=== PATIENT | female | born 1980 | race Caucasian/White ===

== ENCOUNTER 2018-08-05 14:49 | Emergency (ER) | payer SELFPAY ==
[2018-08-05 14:58] VITALS: BP 123/78; PULSE 77; RESP 14; TEMP 36.6; O2SAT 100
--- NOTE | 2018-08-05 15:11 | DI.RAD_ITS ---
SYMPTOMS/DIAGNOSIS: LIFTING INJURY 4 DAYS AGO AT WORK LUMBAR SPINE: The vertebral bodies and disc spaces are well maintained. No spondylolysis, spondylolisthesis or scoliosis is seen. The SI joints are unremarkable. IMPRESSION: Negative lumbar spine.
--- NOTE | 2018-08-05 15:13 | W.ED.GENAD ---
Discharge Plan Disposition Patient Disposition: HOME Condition: Fair Discharge Details Chief Complaint: Nk/Back Pain Clinical Impression: Acute lumbar back pain Primary Care Provider: None,None ED Provider: Roselyn Rojo Meds and New Rx's Prescriptions: New cyclobenzaprine 10 mg tablet 10 mg PO TID PRN (Reason: muscle spasm) Qty: 14 RF: 0 ibuprofen 600 mg tablet 600 mg PO QID PRN (Reason: pain) Qty: 30 RF: 0 Continue acetaminophen [Mapap Extra Strength] 500 MG tablet 500 mg PRN PRNRF: 0 Discontinued ibuprofen 200 MG tablet 800 mg PO PRN PRNRF: 0 Discharge Instructions Instructions: Low Back Strain (ED), Core Strengthening Exercises (GEN), Lower Back Exercises (ED) Additional Instructions: Encourage hydration. Tylenol and/or ibuprofen as needed for discomfort. You may take 1,000 milligrams of Tylenol every 6 hours as needed, 600 mg of ibuprofen every 6 hours as needed. Flexeril as prescribed for muscle spasm every 8 hours as needed. He may try cnzo-ozn-bqrqwng patches such as Lidoderm or Salonpas patches. Please contact occupational health tomorrow to schedule follow-up appointment in the next 1-2 weeks. Encourage gentle stretching and frequent ambulation. Please avoid heavy lifting and activities that cause increased pain. If you develop sensation change from weakness in her extremities, change in bowel or bladder habits, increased pain, fever/chills or other new/worsening symptoms please seek care urgently once again Stand Alone Forms: Physical Therapy Referral, Work Release Discharge Data Discharge Date/Time-TO BE ENTERED AT DEPARTURE: 08/05/18 18:22 Medical Decision Making <Aditya Chan NP - Last Filed: 08/07/18 09:39> Being initial injury will x-ray back. Plan to administer lidocaine patch, ibuprofen, and flexeril. No saddle anesthesia and no radiating pain unlikely discogenic or fracture. Will transition care to Colleague Roselyn VAZ for disposition. <ТАТЬЯНА Alaniz - Last Filed: 08/05/18 19:20> Care was transitioned to myself by Zhou Chan NP, with x-rays pending. Patient received ibuprofen, Flexeril and Lidoderm patch. She reports that her pain is improved although she continues to endorse discomfort primarily with rotation to the right. Again, no radiating discomfort. Mr. Chan did not note any neurologic deficits. X-ray reviewed by radiologist. Bone density throughout the lumbar spine is normal. No fracture. No subluxation. The facet joints are intact. The sacroiliac joints are unremarkable. Incidental sclerotic focus within the left ilium, likely bone island. Soft tissues are normal. Discussed these findings with the patient. Advised at this point that there is no acute fracture. Advised this is likely strain associated with rotational injury she sustained at work. Patient will be prescribed Flexeril. I advised she continue with the Tylenol and/or ibuprofen. We discussed topical options to help with discomfort. I encouraged gentle stretching and frequent ambulation. Advised against any heavy lifting or activities that cause increase in discomfort. Work note will be given. I advised that she contact occupational health tomorrow to schedule follow-up. Patient also be referred to physical therapy. All of her questions and concerns were addressed she is in agreement this plan. We discussed new/worsening symptoms and when to seek care urgently once again. HPI <Aditya ChanFROY - Last Filed: 08/07/18 09:39> General Mode of arrival: ambulatory. Date/Time Provider Initiated Documentation: 08/05/18 14:52. Limitations to Documentation: no limitations. Information obtained by: patient. History of Present Illness 37 year old F presents to the emergency department with the chief complaint of back pain, HPI Narrative: 37 y/o female here with c/o acute back pain after lifting injury. Four days ago she was lifting heavy bins at work when she felt a pull/pop to the lower right back. Pain is worse as it crosses over the lumbar region. Denies any fever, N/V/D, bowel or bladder incontinence. The pain does not radiate. She does not have a history of back injury or pain. Her boss brought in to be evaluated. Related Data Home Medications Medication Instructions Recorded Confirmed acetaminophen [Mapap Extra 500 mg PRN PRN 08/03/14 08/05/18 Strength] cyclobenzaprine 10 mg PO TID PRN #14 tab 08/05/18 ibuprofen 600 mg PO QID PRN #30 tab 08/05/18 Previous Rx's Medication Instructions Recorded cyclobenzaprine 10 mg PO TID PRN #14 tab 08/05/18 ibuprofen 600 mg PO QID PRN #30 tab 08/05/18 Allergies Allergy/AdvReac Type Severity Reaction Status Date / Time No Known Allergies Allergy Unverified 03/06/18 09:58 General Stated Complaint: Nk/Back Pain GOMEZ: 4 Review of Systems <Aditya Chan NP - Last Filed: 08/07/18 09:39> Cardiovascular Reports system reviewed and no additional complaints, except as docu Respiratory Reports system reviewed and no additional complaints, except as docu Gastrointestinal Reports system reviewed and no additional complaints, except as docu Genitourinary Reports system reviewed and no additional complaints, except as docu Musculoskeletal Reports back pain Integumentary/Breasts Reports system reviewed and no additional complaints, except as docu Neurologic Reports system reviewed and no additional complaints, except as docu Exam <Aditya Chan NP - Last Filed: 08/07/18 09:39> Const General: cooperative, uncomfortable (pain to lower back) and no acute distress Nutritional Appearance: average body habitus Orientation: alert and awake HENID Head: normal to inspection Ears: hearing grossly normal bilaterally and external ears normal General nose exam: external nose normal and nares normal Eyes General: appearance normal, both eyes and all related structures Neck Neck: normal visual inspection and full ROM Resp Effort & Inspection: normal respiratory effort Auscultation: clear to auscultation bilaterally Cardio Rate: regular rate Heart Sounds: S1 normal and S2 normal GI Palpation: soft and nontender Back/Spine/Pelvis Back: no CVA tenderness, No erythema, back tenderness (minimal to lower right lumbar region with rotating at the hip) and No Daniels-Johnson sign present Cervical Spine: normal cervical lordosis and cervical ROM normal Thoracic/Lumbar Spine: thoracic and lumbar spine normal to inspection, No thoracic spinal tenderness, No lumbar spinal tenderness and straight leg raise positive (left) Pelvis: no pain with anterior-posterior compression Skin General skin exam: no rashes or lesions noted Neuro General: alert, awake, oriented x3 and gait normal Cognition: normal cognition Speech: speech normal Gait: normal gait Extrem General: normal to inspection, full ROM and normal capillary refill Psych Appearance: grossly normal Speech and Movement: speech and movement normal Mood: congruent mood Affect: normal affect Attitude: cooperative Thought Process: normal Thought Content: normal Insight: insight good Course <Aditya Chan NP - Last Filed: 08/07/18 09:39> Vital Signs Temperature 36.6 C 08/05/18 14:58 Pulse 77 08/05/18 14:58 Respiratory Rate 14 11/27/18 14:58 Blood Pressure 123/78 08/05/18 14:58 Pulse Oximetry 100 08/05/18 14:58 Temperature 36.6 C 08/05/18 14:58 Temperature Source Temporal Artery Scan 08/05/18 14:58 Pulse 77 08/05/18 14:58 Respiratory Rate 14 08/05/18 14:58 Respiratory Effort 08/05/18 15:00 Blood Pressure 123/78 08/05/18 14:58 Blood Pressure Position Sitting 08/05/18 14:58 Pulse Oximetry 100 08/05/18 14:58 Oxygen Delivery Method Room Air 08/05/18 14:58 Oxygen Flow Rate 0 08/05/18 14:58 Pain Level 5 08/05/18 14:58 Sign Out <Aditya Chan NP - Last Filed: 08/07/18 09:39> Sign Out Data: Sign Out Comment: Discussed with Roselyn TINAJERO. X-ray pending. Roselyn agrees to disposition pat. Pt notified. Last updated by Aditya Chan NP at 08/05/18 16:30
--- NOTE | 2018-08-05 15:20 | ED.GENADUL_ITS ---
Discharge Plan Disposition Patient Disposition: HOME Condition: Fair Discharge Details Chief Complaint: Nk/Back Pain Clinical Impression: Acute lumbar back pain Primary Care Provider: None,None ED Provider: Roselyn Rjoo Meds and New Rx's Prescriptions: New cyclobenzaprine 10 mg tablet 10 mg PO TID PRN (Reason: muscle spasm) Qty: 14 RF: 0 ibuprofen 600 mg tablet 600 mg PO QID PRN (Reason: pain) Qty: 30 RF: 0 Continue acetaminophen [Mapap Extra Strength] 500 MG tablet 500 mg PRN PRNRF: 0 Discontinued ibuprofen 200 MG tablet 800 mg PO PRN PRNRF: 0 Discharge Instructions Instructions: Low Back Strain (ED), Core Strengthening Exercises (GEN), Lower Back Exercises (ED) Additional Instructions: Encourage hydration. Tylenol and/or ibuprofen as needed for discomfort. You may take 1,000 milligrams of Tylenol every 6 hours as needed, 600 mg of ibuprofen every 6 hours as needed. Flexeril as prescribed for muscle spasm every 8 hours as needed. He may try rjos-wak-xqoqyww patches such as Lidoderm or Salonpas patches. Please contact occupational health tomorrow to schedule follow-up appointment in the next 1-2 weeks. Encourage gentle stretching and frequent ambulation. Please avoid heavy lifting and activities that cause increased pain. If you develop sensation change from weakness in her extremities, change in bowel or bladder habits, increased pain, fever/chills or other new/worsening symptoms please seek care urgently once again Stand Alone Forms: Physical Therapy Referral, Work Release Discharge Data Discharge Date/Time-TO BE ENTERED AT DEPARTURE: 08/05/18 18:22 Medical Decision Making <Aditya Chan NP - Last Filed: 08/07/18 09:39> Being initial injury will x-ray back. Plan to administer lidocaine patch, ibuprofen, and flexeril. No saddle anesthesia and no radiating pain unlikely discogenic or fracture. Will transition care to Colleague Roselyn VAZ for disposition. <ТАТЬЯНА Alaniz - Last Filed: 08/05/18 19:20> Care was transitioned to myself by Zhou Chan NP, with x-rays pending. Patient received ibuprofen, Flexeril and Lidoderm patch. She reports that her pain is improved although she continues to endorse discomfort primarily with rotation to the right. Again, no radiating discomfort. Mr. Chan did not note any neurologic deficits. X-ray reviewed by radiologist. Bone density throughout the lumbar spine is normal. No fracture. No subluxation. The facet joints are intact. The sacroiliac joints are unremarkable. Incidental sclerotic focus within the left ilium, likely bone island. Soft tissues are normal. Discussed these findings with the patient. Advised at this point that there is no acute fracture. Advised this is likely strain associated with rotational injury she sustained at work. Patient will be prescribed Flexeril. I advised she continue with the Tylenol and/or ibuprofen. We discussed topical options to help with discomfort. I encouraged gentle stretching and frequent ambulation. Advised against any heavy lifting or activities that cause increase in discomfort. Work note will be given. I advised that she contact occupational health tomorrow to schedule follow-up. Patient also be referred to physical therapy. All of her questions and concerns were addressed she is in agreement this plan. We discussed new/worsening symptoms and when to seek care urgently once again. HPI <Aditya ChanFROY - Last Filed: 08/07/18 09:39> General Mode of arrival: ambulatory . Date/Time Provider Initiated Documentation: 08/05/18 14:52 . Limitations to Documentation: no limitations . Information obtained by: patient . History of Present Illness 37 year old F presents to the emergency department with the chief complaint of back pain, HPI Narrative: 37 y/o female here with c/o acute back pain after lifting injury. Four days ago she was lifting heavy bins at work when she felt a pull/ pop to the lower right back. Pain is worse as it crosses over the lumbar region. Denies any fever, N/V/D, bowel or bladder incontinence. The pain does not radiate. She does not have a history of back injury or pain. Her boss brought in to be evaluated. Related Data Home Medications Medication Instructions Recorded Confirmed acetaminophen [Mapap Extra 500 mg PRN PRN 08/03/14 08/05/18 Strength] cyclobenzaprine 10 mg PO TID PRN #14 tab 08/05/18 ibuprofen 600 mg PO QID PRN #30 tab 08/05/18 Previous Rx's Medication Instructions Recorded cyclobenzaprine 10 mg PO TID PRN #14 tab 08/05/18 ibuprofen 600 mg PO QID PRN #30 tab 08/05/18 Allergies Allergy/AdvReac Type Severity Reaction Status Date / Time No Known Allergies Allergy Unverified 03/06/18 09:58 General Stated Complaint: Nk/Back Pain GOMEZ: 4 Review of Systems <Aditya Chan NP - Last Filed: 08/07/18 09:39> Cardiovascular Reports system reviewed and no additional complaints, except as docu Respiratory Reports system reviewed and no additional complaints, except as docu Gastrointestinal Reports system reviewed and no additional complaints, except as docu Genitourinary Reports system reviewed and no additional complaints, except as docu Musculoskeletal Reports back pain Integumentary/Breasts Reports system reviewed and no additional complaints, except as docu Neurologic Reports system reviewed and no additional complaints, except as docu Exam <Aditya Chan NP - Last Filed: 08/07/18 09:39> Const General: cooperative, uncomfortable (pain to lower back) and no acute distress Nutritional Appearance: average body habitus Orientation: alert and awake HENME Head: normal to inspection Ears: hearing grossly normal bilaterally and external ears normal General nose exam: external nose normal and nares normal Eyes General: appearance normal, both eyes and all related structures Neck Neck: normal visual inspection and full ROM Resp Effort & Inspection: normal respiratory effort Auscultation: clear to auscultation bilaterally Cardio Rate: regular rate Heart Sounds: S1 normal and S2 normal GI Palpation: soft and nontender Back/Spine/Pelvis Back: no CVA tenderness, No erythema, back tenderness (minimal to lower right lumbar region with rotating at the hip) and No Daniels-Johnson sign present Cervical Spine: normal cervical lordosis and cervical ROM normal Thoracic/Lumbar Spine: thoracic and lumbar spine normal to inspection, No thoracic spinal tenderness, No lumbar spinal tenderness and straight leg raise positive (left) Pelvis: no pain with anterior-posterior compression Skin General skin exam: no rashes or lesions noted Neuro General: alert, awake, oriented x3 and gait normal Cognition: normal cognition Speech: speech normal Gait: normal gait Extrem General: normal to inspection, full ROM and normal capillary refill Psych Appearance: grossly normal Speech and Movement: speech and movement normal Mood: congruent mood Affect: normal affect Attitude: cooperative Thought Process: normal Thought Content: normal Insight: insight good Course <Aditya Chan NP - Last Filed: 08/07/18 09:39> Vital Signs Temperature 36.6 C 08/05/18 14:58 Pulse 77 08/05/18 14:58 Respiratory Rate 14 11/27/18 14:58 Blood Pressure 123/78 08/05/18 14:58 Pulse Oximetry 100 08/05/18 14:58 Temperature 36.6 C 08/05/18 14:58 Temperature Source Temporal Artery Scan 08/05/18 14:58 Pulse 77 08/05/18 14:58 Respiratory Rate 14 08/05/18 14:58 Respiratory Effort 08/05/18 15:00 Blood Pressure 123/78 08/05/18 14:58 Blood Pressure Position Sitting 08/05/18 14:58 Pulse Oximetry 100 08/05/18 14:58 Oxygen Delivery Method Room Air 08/05/18 14:58 Oxygen Flow Rate 0 08/05/18 14:58 Pain Level 5 08/05/18 14:58 Sign Out <Aditya Chan NP - Last Filed: 08/07/18 09:39> Sign Out Data: Sign Out Comment: Discussed with Roselyn TINAJERO. X-ray pending. Roselyn agrees to disposition pat. Pt notified. Last updated by Aditya Chan NP at 08/05/18 16:30
[2018-08-05] MEDS: Cyclobenzaprine 10 MG TAB PO (15:36)
[2018-08-05] MEDS: Ibuprofen 600 MG TAB PO (15:36)
[2018-08-05 15:45] LABS: Bilirubin Negative (Negative); Blood Negative (Negative); Clarity Clear; Glucose Negative (Negative); Ketones Negative (Negative); Leukocyte Esterase Negative (Negative); Nitrite Negative (Negative); Specific Gravity 1.025 (1.005-1.025); Urobilinogen 0.2 EU/dL (Up TO 0.2)
[2018-08-05] MEDS: Lidocaine 5% Patch 1 PATCH (16:06)
--- NOTE | 2018-08-05 17:31 | DI.VRAD_ITS ---
EXAM: XR Lumbar Spine, 4 or 5 Views EXAM DATE/TIME: 08/05/2018 3:11 PM CLINICAL HISTORY: 37 years old, female; Signs and symptoms; Other: Lifting injury four days ago a TECHNIQUE: XR of the lumbar spine, 4 or 5 views. COMPARISON: No relevant prior studies available. FINDINGS: Vertebrae: Bone density throughout the lumbar spine is normal. No fracture. No subluxation. The facet joints are intact. The sacroiliac joints are unremarkable. Other bones/joints: Incidental sclerotic focus within the left ilium, likely bone island. Soft tissues: Normal. IMPRESSION: No fracture or subluxation. Dictated and Authenticated by: Kg An MD. Ordering:ORDRIGUE HAUSER MD
[2018-08-05 17:32] VITALS: BP 115/73; PULSE 64; RESP 14; O2SAT 100
== END 2018-08-05 18:22 | disposition home or self-care (01) ==
PROVIDERS: Nurse Practitioner Family; Emergency Provider Physician Assistant
DX: M54.5 Low back pain (principal)
CPT/HCPCS: 99283; 72110; 81003

== ENCOUNTER 2019-02-12 07:06 | Emergency (ER) | payer SELFPAY ==
[2019-02-12 07:36] VITALS: BP 114/64; PULSE 76; RESP 16; TEMP 36.7; O2SAT 98
--- NOTE | 2019-02-12 08:11 | W.ED.GENAD ---
Discharge Plan Disposition Patient Disposition: HOME Discharge Details Chief Complaint: Abd Prob Clinical Impression: Abdominal pain, Adrenal nodule, Ovarian cyst Primary Care Provider: None,None ED Provider: Genaro Bains Home Meds and New Rx's Prescriptions: New famotidine [Pepcid] 20 mg tablet 20 mg PO BID 42 Days Qty: 84 RF: 0 Continued acetaminophen [Mapap Extra Strength] 500 MG tablet 500 mg PRN PRNRF: 0 ibuprofen 600 mg tablet 600 mg PO QID PRN (Reason: pain) Qty: 30 RF: 0 Discontinued cyclobenzaprine 10 mg tablet 10 mg PO TID PRN (Reason: muscle spasm) Qty: 14 RF: 0 Discharge Instructions Instructions: Ovarian Cyst (ED), Abdominal Pain (ED) Additional Instructions: Please contact your primary care physician to arrange follow-up. Be sure to review incidental findings noted and imaging studies as additional diagnostic testing/may be needed. Return to the ER for any worsening or new concerning symptoms. Discharge Data Discharge Date/Time-TO BE ENTERED AT DEPARTURE: 02/12/19 11:09 Medical Decision Making 8:15 --38-year-old female here with moderate to severe epigastric abdominal pain, tender to palpation left upper and left mid abdomen, mild guarding but no rebound. Concern for acute surgical pathology versus diverticulitis versus colitis. Plan to obtain CT imaging. I will check labs to assess for anemia as well as pancreatitis. I will give IV fluid as patient is dehydrated. We will also give Pepcid IV. 9:40 --CT of the abdomen pelvis with contrast interpreted by radiology: Negative for acute process, left adrenal small 2.4 cm nodule noted likely to be adenoma, 3 cm right ovarian cyst noted. I reviewed findings with the patient and recommended that she follow-up with her primary care physician. She understands that she may need additional diagnostic testing. Labs reviewed and consistent with dehydration. Will continue IVF bolus. Patient reassessed and noted to be feeling better after Pepcid. -- Usual and customary discharge instructions were provided. Patient verbalized understanding of importance of need to return for any worsening or new concerning symptoms. HPI General Mode of arrival: ambulatory. Date/Time Provider Initiated Documentation: 02/12/19 08:04. Limitations to Documentation: no limitations. Information obtained by: patient. HPI Narrative: 38-year-old female presents with chief complaint of abdominal pain. Patient notes she woke up this morning around 5 AM with moderate to severe epigastric abdominal pain that radiates to bilateral upper abdomen. Pain is described as a sharp, burning pain. No trauma. Patient has associated anorexia this morning. She denies associated nausea, vomiting, loose stool, fever or chest pain. She has recently had increased fatigue over the past few weeks. Last menstrual period was normal 2-1/2 weeks ago. Last bowel movement was normal this morning Related Data Home Medications Medication Instructions Recorded Confirmed acetaminophen [Mapap Extra 500 mg PRN PRN 08/03/14 02/12/19 Strength] ibuprofen 600 mg PO QID PRN #30 tab 08/05/18 02/12/19 famotidine [Pepcid] 20 mg PO BID 42 Days #84 tab 02/12/19 Previous Rx's Medication Instructions Recorded ibuprofen 600 mg PO QID PRN #30 tab 08/05/18 famotidine [Pepcid] 20 mg PO BID 42 Days #84 tab 02/12/19 Allergies Allergy/AdvReac Type Severity Reaction Status Date / Time No Known Allergies Allergy Unverified 02/12/19 07:38 General Stated Complaint: Abd Prob GMOEZ: 3 Review of Systems Review of Systems All systems reviewed & are unremarkable except as noted in HPI and below Cardiovascular Denies chest pain Gastrointestinal Reports as per HPI and Reports abdominal pain Genitourinary Denies urinary frequency [facility] Surgical History section Ligation of fallopian tube Social History Smoking/Tobacco Use Status: Current every day Drug use: Never Do you feel safe in your relationship?: Yes Exam Const General: cooperative and no acute distress [facility] Head: normocephalic Mouth: mucous membranes dry Throat: posterior oropharynx normal Eyes Conjunctivae: normal conjunctivae Sclera: normal sclerae Neck Neck: trachea midline and supple Resp Auscultation: clear to auscultation bilaterally, no rales, no rhonchi and no wheezes Cardio Jugular venous pressure: no JVD Rate: regular rate and not tachycardic Rhythm: regular rhythm GI Inspection: normal to inspection, no abdominal wall ecchymosis, no edema and non-distended Palpation: soft, not firm, no guarding, no hepatosplenomegaly, no masses, no pulsatile masses, not rigid, tender in the LLQ and in the LUQ and No ascites Auscultation: normal bowel sounds Skin General skin exam: no rashes or lesions noted Neuro General: alert, awake and tone normal Extrem General: no edema Psych Appearance: grossly normal Course Vital Signs Temperature 36.7 C 02/12/19 07:36 Pulse 76 02/12/19 07:36 Respiratory Rate 16 02/12/19 07:36 Blood Pressure 114/64 02/12/19 07:36 Pulse Oximetry 98 02/12/19 07:36 Temperature 36.7 C 02/12/19 07:36 Temperature Source Skin 02/12/19 07:36 Pulse 76 02/12/19 07:36 Respiratory Rate 16 02/12/19 07:36 Respiratory Effort 02/12/19 07:36 Blood Pressure 114/64 02/12/19 07:36 Blood Pressure Position Sitting 02/12/19 07:36 Pulse Oximetry 98 02/12/19 07:36 Oxygen Delivery Method Room Air 02/12/19 07:36 Oxygen Flow Rate 0 02/12/19 07:36 Pain Level 7 02/12/19 07:36
[2019-02-12] MEDS: Lactated Ringers 1,000 ML 125 ML IV (08:15)
--- NOTE | 2019-02-12 08:17 | ED.GENADUL_ITS ---
Discharge Plan Disposition Patient Disposition: HOME Discharge Details Chief Complaint: Abd Prob Clinical Impression: Abdominal pain, Adrenal nodule, Ovarian cyst Primary Care Provider: None,None ED Provider: Genaro Bains Home Meds and New Rx's Prescriptions: New famotidine [Pepcid] 20 mg tablet 20 mg PO BID 42 Days Qty: 84 RF: 0 Continued acetaminophen [Mapap Extra Strength] 500 MG tablet 500 mg PRN PRNRF: 0 ibuprofen 600 mg tablet 600 mg PO QID PRN (Reason: pain) Qty: 30 RF: 0 Discontinued cyclobenzaprine 10 mg tablet 10 mg PO TID PRN (Reason: muscle spasm) Qty: 14 RF: 0 Discharge Instructions Instructions: Ovarian Cyst (ED), Abdominal Pain (ED) Additional Instructions: Please contact your primary care physician to arrange follow-up. Be sure to review incidental findings noted and imaging studies as additional diagnostic testing/may be needed. Return to the ER for any worsening or new concerning symptoms. Discharge Data Discharge Date/Time-TO BE ENTERED AT DEPARTURE: 02/12/19 11:09 Medical Decision Making 8:15 --38-year-old female here with moderate to severe epigastric abdominal pain, tender to palpation left upper and left mid abdomen, mild guarding but no rebound. Concern for acute surgical pathology versus diverticulitis versus colitis. Plan to obtain CT imaging. I will check labs to assess for anemia as well as pancreatitis. I will give IV fluid as patient is dehydrated. We will also give Pepcid IV. 9:40 --CT of the abdomen pelvis with contrast interpreted by radiology: Negative for acute process, left adrenal small 2.4 cm nodule noted likely to be adenoma, 3 cm right ovarian cyst noted. I reviewed findings with the patient and recommended that she follow-up with her primary care physician. She understands that she may need additional diagnostic testing. Labs reviewed and consistent with dehydration. Will continue IVF bolus. Patient reassessed and noted to be feeling better after Pepcid. -- Usual and customary discharge instructions were provided. Patient verbalized understanding of importance of need to return for any worsening or new concerning symptoms. HPI General Mode of arrival: ambulatory . Date/Time Provider Initiated Documentation: 02/12/19 08:04 . Limitations to Documentation: no limitations . Information obtained by: patient . HPI Narrative: 38-year-old female presents with chief complaint of abdominal pain. Patient notes she woke up this morning around 5 AM with moderate to severe epigastric abdominal pain that radiates to bilateral upper abdomen. Pain is described as a sharp, burning pain. No trauma. Patient has associated anorexia this morning. She denies associated nausea, vomiting, loose stool, fever or chest pain. She has recently had increased fatigue over the past few weeks. Last menstrual period was normal 2-1/2 weeks ago. Last bowel movement was normal this morning Related Data Home Medications Medication Instructions Recorded Confirmed acetaminophen [Mapap Extra 500 mg PRN PRN 08/03/14 02/12/19 Strength] ibuprofen 600 mg PO QID PRN #30 tab 08/05/18 02/12/19 famotidine [Pepcid] 20 mg PO BID 42 Days #84 tab 02/12/19 Previous Rx's Medication Instructions Recorded ibuprofen 600 mg PO QID PRN #30 tab 08/05/18 famotidine [Pepcid] 20 mg PO BID 42 Days #84 tab 02/12/19 Allergies Allergy/AdvReac Type Severity Reaction Status Date / Time No Known Allergies Allergy Unverified 02/12/19 07:38 General Stated Complaint: Abd Prob GOMEZ: 3 Review of Systems Review of Systems All systems reviewed & are unremarkable except as noted in HPI and below Cardiovascular Denies chest pain Gastrointestinal Reports as per HPI and Reports abdominal pain Genitourinary Denies urinary frequency [facility] Surgical History section Ligation of fallopian tube Social History Smoking/Tobacco Use Status: Current every day Drug use: Never Do you feel safe in your relationship?: Yes Exam Const General: cooperative and no acute distress [facility] Head: normocephalic Mouth: mucous membranes dry Throat: posterior oropharynx normal Eyes Conjunctivae: normal conjunctivae Sclera: normal sclerae Neck Neck: trachea midline and supple Resp Auscultation: clear to auscultation bilaterally, no rales, no rhonchi and no wheezes Cardio Jugular venous pressure: no JVD Rate: regular rate and not tachycardic Rhythm: regular rhythm GI Inspection: normal to inspection, no abdominal wall ecchymosis, no edema and non-distended Palpation: soft, not firm, no guarding, no hepatosplenomegaly, no masses, no pulsatile masses, not rigid, tender in the LLQ and in the LUQ and No ascites Auscultation: normal bowel sounds Skin General skin exam: no rashes or lesions noted Neuro General: alert, awake and tone normal Extrem General: no edema Psych Appearance: grossly normal Course Vital Signs Temperature 36.7 C 02/12/19 07:36 Pulse 76 02/12/19 07:36 Respiratory Rate 16 02/12/19 07:36 Blood Pressure 114/64 02/12/19 07:36 Pulse Oximetry 98 02/12/19 07:36 Temperature 36.7 C 02/12/19 07:36 Temperature Source Skin 02/12/19 07:36 Pulse 76 02/12/19 07:36 Respiratory Rate 16 02/12/19 07:36 Respiratory Effort 02/12/19 07:36 Blood Pressure 114/64 02/12/19 07:36 Blood Pressure Position Sitting 02/12/19 07:36 Pulse Oximetry 98 02/12/19 07:36 Oxygen Delivery Method Room Air 02/12/19 07:36 Oxygen Flow Rate 0 02/12/19 07:36 Pain Level 7 02/12/19 07:36
[2019-02-12 08:20] LABS: Abs Immature Grans 0.02 k/cumm (0.0-0.09); Absolute Basophil Count 0.02 k/cumm (0.0-0.2); Absolute Eosinophil Count 0.01 k/cumm (0.0-0.7); Absolute Lymphocyte Count 2.09 k/cumm (1.2-3.4); Absolute Monocyte Count 0.56 k/cumm (0.11-0.7); Absolute Neutrophil Count 5.83 k/cumm (1.2-6.7); Basophils % 0.2; Eosinophils % 0.1; HCT 41.2 % (36.0-46.0); HGB 13.4 g/dL (12.0-15.5); Immature Grans % 0.2; Lymphocytes % 24.5; Mean Corp. HGB Concentration 32.5 g/dL (32.0-36.0); Mean Corpuscular Volume 92.2 fL (80-95); Mean Platelet Volume 10.7 fL (8.0-11.0); Monocytes % 6.6; Neutrophils % 68.4; Platelet Count 218 x1000/uL (130-400); RBC 4.47 m/cumm (4.00-5.20); RBC Distribution Width 15.3 % (11.7-14.6); White Blood Cell Count 8.53 k/cumm (4.4-10.8)
[2019-02-12] MEDS: FAMOTIDINE 20 MG/50 ML BAG 100 MG IVPB (08:20)
[2019-02-12 08:23] LABS: Bilirubin Negative (Negative); Blood Trace-intact (Negative); Clarity Clear; Glucose Negative (Negative); Ketones 15 mg/dL (Negative); Leukocyte Esterase Negative (Negative); Nitrite Negative (Negative); Specific Gravity 1.015 (1.005-1.025); Urobilinogen 0.2 EU/dL (Up TO 0.2); pH 5.5 (5-8)
[2019-02-12 08:35] LABS: Bacteria Negative HPF (Negative); C & S Indicated? No; Casts Negative LPF (Negative); Crystals Negative HPF (Negative); Epithelial Cells Few HPF (Negative); Mucus Negative (Negative); RBC 0-2 (0-2); WBC 0-2 HPF (0-5)
[2019-02-12 08:35] LABS: ALT 20 U/L (12-78); AST 10 U/L (15-37); Albumin 3.9 g/dL (3.4-5.0); Alkaline Phosphatase 63 U/L (46-116); Anion Gap 11.8 mmol/L (3-11); BUN 20 mg/dL (7-18); Bilirubin, Total 0.3 mg/dL (0.2-1.0); CO2 22.2 mmol/L (21.0-32.0); CREATININE 0.66 mg/dL (0.55-1.02); Calcium 10.2 mg/dL (8.5-10.1); Chloride 104 mmol/L (98-107); Glucose 98 mg/dL (70-100); Lipase 118 U/L (73-393); Potassium 3.8 mmol/L (3.5-5.1); Sodium 138 mmol/L (136-145); Total Protein 7.4 g/dL (6.4-8.2)
[2019-02-12] MEDS: Omnipaque 350 MG/ML 100 ML BTL IJ (09:25)
--- NOTE | 2019-02-12 09:25 | DI.CT_ITS ---
SYMPTOM/DIAGNOSIS: EPIGASTRIC ABDOMINAL PAIN, TTP LEFT ABDOMEN CT SCAN ABDOMEN AND PELVIS: CT scan of the abdomen and pelvis was performed following the uneventful administration of intravenous contrast material. No priors for comparison. The visualized lung bases are clear. The liver is normal in size. No suspicious hepatic masses seen. Incidental note is made of focal fatty infiltration in the region of the ligamentum teres. The portal, superior mesenteric and splenic veins are patent. The gallbladder is negative. No biliary ductal dilatation is seen. The pancreas and spleen are unremarkable. There is a 2.4 cm hypodense left adrenal nodule likely an adenoma. The right adrenal gland is unremarkable. The kidneys show normal and symmetric enhancement. No evidence of a solid renal mass or obstruction. The urinary bladder is intact. Reproductive organs are unremarkable save for a 3.2 cm right ovarian cyst. The abdominal aorta is of normal caliber. No significant abdominal or pelvic adenopathy, ascites or pneumoperitoneum seen. The bowel shows no evidence of obstruction or inflammation. There are a few diverticula seen in the sigmoid colon but no evidence to suggest acute diverticulitis is present. A normal appendix is present. No acute osseous abnormality is seen. IMPRESSION: 1. No acute abdominal or pelvic abnormality. 2. 3.2 cm right ovarian cyst. 3. 2.4 cm hypodense left adrenal nodule likely reflecting a benign lesion such as an adenoma. Follow up as clinically appropriate. The findings were discussed with Dr. Genaro Bains of the Emergency Department on the date of the examination.
[2019-02-12] MEDS: Lactated Ringers 1,000 ML 1000 ML IV (09:45)
[2019-02-12 11:10] VITALS: BP 120/68; PULSE 60; RESP 16; TEMP 36.7; O2SAT 98
== END 2019-02-12 11:09 | disposition home or self-care (01) ==
PROVIDERS: Emergency Provider Student in an Organized Health Care Education/Training Program
DX: R10.13 Epigastric pain (principal); E27.9 Disorder of adrenal gland, unspecified; N83.201 Unspecified ovarian cyst, right side
CPT/HCPCS: 36415; 80053; 81025; 83690; 96361; 96365; 99285; 74177; 81003; 81015; 85025; 99284; J3490

== ENCOUNTER 2019-09-07 09:56 | Emergency (ER) | payer SELFPAY ==
[2019-09-07 10:00] VITALS: BP 116/76; PULSE 94; RESP 14; TEMP 36.6; O2SAT 99
--- NOTE | 2019-09-07 10:48 | ED.GENADUL_ITS ---
Discharge Plan Disposition Patient Disposition: HOME Condition: Stable Discharge Details Chief Complaint: DentalOral Clinical Impression: Dental infection Primary Care Provider: Unknown,Unknown ED Provider: Daksha Bains Home Meds and New Rx's Prescriptions: New penicillin V potassium 500 mg tablet 500 mg PO QID 7 Days Qty: 27 RF: 0 Continued acetaminophen [Mapap Extra Strength] 500 MG tablet 500 mg PRN PRNRF: 0 ibuprofen 600 mg tablet 600 mg PO QID PRN (Reason: pain) Qty: 30 RF: 0 Discharge Instructions Instructions: Penicillin V (By mouth), Oxycodone/Acetaminophen (By mouth), Dental Abscess (ED) Additional Instructions: Please return immediately to the emergency department if you develop any new or worsening symptoms, if your condition does not improve as expected, or if you become otherwise concerned. It is extremely important that you call soon as possible to make an appointment to be seen in follow-up for this visit by your primary care doctor and your dentist. You have been given 1 tab of Percocet to take after you drive home. Please do not take or use any other sedating medications or substances including alcohol and [id number] Benadryl within 6 hours of taking Percocet. Please not drive, make important decisions, or operate machinery while taking Percocet. Medical Decision Making Prachi Henao is a 38-year-old woman without reported history of major medical problems presenting to the emergency department with dental pain/facial swelling that began yesterday. On exam patient is very well and nontoxic appearing. There is erythema of the gingiva/mucosa adjacent to teeth 11 and 12, edema of the maxillary/buccal area of the face adjacent to these teeth. No overlying skin changes. Bedside ultrasound shows no fluid collection. Exam/history is not consistent with abscess, deep space infection, meningitis, impending airway compromise, sepsis. Plan for penicillin. Patient is driving herself home, will give 1 tab Percocet for home use. I had a lengthy discussion with Patient regarding return to emergency department precautions (including but not limited to rash, fever, worsening pain, worsening swelling, vomiting, difficulty swallowing), home care, safe opiate use, and importance of outpatient follow-up with her dentist. Patient is instructed to return to the emergency department within 24 to 48 hours if no improvement in symptoms while taking antibiotics. Pt verbalizes understanding of the plan and is amenable. Patient discharged to home with clear plan for outpatient follow-up. All questions were answered. Disposition decision was made weighing the risks and benefits of hospitalization versus outpatient treatment, the risk for further decompensation, and the patient's wishes. Medical Records Medical records reviewed: Yes I reviewed the patient's medical records. HPI General Mode of arrival: ambulatory . Date/Time Provider Initiated Documentation: 09/07/19 10:43 . Limitations to Documentation: no limitations . Information obtained by: patient, RN notes reviewed and old records reviewed . HPI Narrative: Prachi Vazquez is a 38-year-old woman without reported history of major medical problems presenting to the emergency department with dental pain. Patient reports that yesterday she noticed pain in the area of her left upper canines. Patient reports that this morning she woke up and pain had increased, and she noticed swelling in her face in that area. Patient reports that she thinks that she cracked the associated tooth about 7 months ago, but has not had pain or issues with that tooth since. Patient reports she has never had a dental infection in the past. No known inciting event. Patient denies any other pain, fevers, vomiting, diarrhea, rash, vision changes, difficulty swallowing, drooling, voice change. Patient reports that feels otherwise in her usual state of health. Has been eating and drinking until this morning, when she did not eat secondary to the pain in her tooth. Patient reports that she took ibuprofen for pain yesterday which helped. Related Data Home Medications Medication Instructions Recorded Confirmed acetaminophen [Mapap Extra 500 mg PRN PRN 08/03/14 09/07/19 Strength] ibuprofen 600 mg PO QID PRN #30 tab 08/05/18 09/07/19 penicillin V potassium 500 mg PO QID 7 Days #27 tab 09/07/19 Previous Rx's Medication Instructions Recorded ibuprofen 600 mg PO QID PRN #30 tab 08/05/18 penicillin V potassium 500 mg PO QID 7 Days #27 tab 09/07/19 Allergies Allergy/AdvReac Type Severity Reaction Status Date / Time No Known Allergies Allergy Unverified 09/07/19 10:03 General Stated Complaint: DentalOral GOMEZ: 4 Review of Systems Narrative: Constitutional: denies fevers Eyes: denies eye pain, visual changes ENT: denies ear pain, sore throat, reports dental pain Cardiovascular: denies chest pain Respiratory: denies SOB, cough GI: denies abdominal pain, vomiting, diarrhea : denies flank pain MSK: denies back pain, neck pain, arthralgias, myalgias Skin: denies rash Neuro: denies headaches, numbness, weakness PFSH Social History Smoking/Tobacco Use Status: Current every day Tobacco Type: cigarettes Alcohol Intake: never Drug use: Never Substance use type: does not use Do you feel safe at home: Yes Do you feel safe in your relationship?: Yes Exam Narrative Exam Narrative: Constitutional: well and [id number], pleasant, conversing normally HENT: head atraumatic/normocephalic/normal inspection, mucous membranes moist, normal posterior pharynx, no drooling, handling secretions without issue, erythema of the gingiva/soft tissue in area of teeth 11 and 12, tender to palpation, no fluctuance. Tenderness palpation of the buccal/maxillary area just superior to teeth 11 and 12, mild edema in this area without fluctuance or overlying skin changes, no tenderness palpation of the maxillary sinuses. Eyes: conjunctiva normal, sclera normal, pupils 3mm b/l, extraocular movements intact Neck: no stridor, normal ROM, trachea midline Resp: normal work of breathing, LCTAB Cardio: normal rate, normal rhythm, no murmur appreciated Skin: warm, dry, normal color, no rash Neuro: alert, not altered, grossly non-focal, normal tone Ext: Moving all extremities equally Psych: normal mood, normal affect, normal behavior Course Vital Signs Vital signs: Vital Signs Temperature 36.6 C 09/07/19 10:00 Pulse 94 H 09/07/19 10:00 Respiratory Rate 14 09/07/19 10:00 Blood Pressure 116/76 09/07/19 10:00 Pulse Oximetry 99 09/07/19 10:00 Temperature 36.6 C 09/07/19 10:00 Temperature Source Temporal Artery Scan 09/07/19 10:00 Pulse 94 H 09/07/19 10:00 Respiratory Rate 14 09/07/19 10:00 Respiratory Effort Non-Labored 09/07/19 10:02 Blood Pressure 116/76 09/07/19 10:00 Blood Pressure Position Sitting 09/07/19 10:00 Pulse Oximetry 99 09/07/19 10:00 Oxygen Delivery Method Room Air 09/07/19 10:00 Oxygen Flow Rate 0 09/07/19 10:00 Pain Level 8 09/07/19 10:00
[2019-09-07] MEDS: oxyCODONE 5 mg/Acetaminophen 325 mg TAB 1 TAB PO (11:02)
[2019-09-07] MEDS: Penicillin V POTASSIUM 500 MG TAB PO (11:03)
== END 2019-09-07 11:06 | disposition home or self-care (01) ==
PROVIDERS: Emergency Provider Student in an Organized Health Care Education/Training Program
DX: R68.84 Jaw pain (principal); K04.7 Periapical abscess without sinus; R22.0 Localized swelling, mass and lump, head
CPT/HCPCS: 99283

== ENCOUNTER 2019-11-23 18:14 | Emergency (ER) | payer BC, SELFPAY ==
[2019-11-23 18:19] VITALS: BP 118/71; PULSE 93; RESP 16; TEMP 36.1; O2SAT 100
--- NOTE | 2019-11-23 18:24 | W.ED.GENAD ---
Discharge Plan Disposition Patient Disposition: HOME Condition: Good Discharge Details Chief Complaint: Sorethroat Clinical Impression: Pharyngitis Primary Care Provider: Unknown,Unknown ED Provider: Roselyn Rojo Home Meds and New Rx's Prescriptions: New Lidocaine Viscous 2 % solution 1 applic MM QID PRN (Reason: pain) Qty: 100 RF: 0 Continued acetaminophen [Mapap Extra Strength] 500 MG tablet 500 mg PRN PRNRF: 0 ibuprofen 600 mg tablet 600 mg PO QID PRN (Reason: pain) Qty: 30 RF: 0 Discharge Instructions Instructions: Pharyngitis (ED) Additional Instructions: Your laboratory work-up here today was without significant abnormality. Your sore throat is likely secondary to a virus. We will contact you if your remaining labs have anything concerning. Please encourage water intake. Tylenol and/or ibuprofen as needed for discomfort. You may use the viscous lidocaine as prescribed to help with discomfort and allow for further hydration and eating. Gargle and spit the medication out. Please follow-up with primary care at the end of the week for reevaluation. If you develop fever/chills, inability stay hydrated, increased swelling or other new/worsening symptoms please seek care urgently once again. Discharge Data Discharge Date/Time-TO BE ENTERED AT DEPARTURE: 11/23/19 19:35 Medical Decision Making Patient is a pleasant 39-year-old female presenting today with chief complaint of sore throat. She reports the pain began 4 days ago. She denies any fevers or chills. No nausea or vomiting. No change in bowel or bladder habits. States that the pain can radiate slightly to her right ear but denies any huyen ear pain. Finds drinking water improves her discomfort. Pain maximal when swallowing without fluids in her mouth. States that she has been quite fatigued over recent days. Has noted enlarged lymph nodes, right larger than the left. On exam, she appears nontoxic. She appears well hydrated. She has erythematous and mildly enlarged bilateral tonsils with white exudate. She does have palpable lymphadenopathy that is tender on palpation. No nuchal rigidity, no rash, lungs are clear. Evaluation is otherwise without significant abnormality. Patient's rapid strep testing is negative. Given patient's appearance, fatigue and notable lymphadenopathy, I feel that testing patient for mono would be appropriate at this point. Discussed this plan the patient is in agreement. Labs reviewed. No leukocytosis. Rapid mono was negative, labs otherwise without significant abnormality. Advised likely viral etiology. Encourage water intake. Advised Tylenol and ibuprofen as needed for discomfort. She given return precautions. Advise follow-up with primary care in 1 week for reevaluation. If she develops new or worsening symptoms she seek care urgently once again. All of her questions or concerns were addressed and she is in agreement this plan. HPI General Mode of arrival: ambulatory. Date/Time Provider Initiated Documentation: 11/23/19 18:24. Limitations to Documentation: no limitations. Information obtained by: patient, family and RN notes reviewed. History of Present Illness 39 year old F presents to the emergency department with the chief complaint of sore throat, described as severe, Quality is described as burning, and is localized to the mouth. Patient reports no radiation. Patient started experiencing this day(s) and it has been constant. other things that improve symptom(s), (drinkin water) Other factors that worsen symptoms (swallowing without water) . Patient notes other (fatigue); denies chest pain, cough, fever/chills, loss of appetite, nausea/vomiting, rash and shortness of breath. Patient did receive the following treatments prior to arrival, none Related Data Home Medications Medication Instructions Recorded Confirmed acetaminophen [Mapap Extra 500 mg PRN PRN 08/03/14 11/23/19 Strength] ibuprofen 600 mg PO QID PRN #30 tab 08/05/18 11/23/19 lidocaine HCl [Lidocaine Viscous] 1 applic MM QID PRN #100 ml 11/23/19 Previous Rx's Medication Instructions Recorded ibuprofen 600 mg PO QID PRN #30 tab 08/05/18 lidocaine HCl [Lidocaine Viscous] 1 applic MM QID PRN #100 ml 11/23/19 Allergies Allergy/AdvReac Type Severity Reaction Status Date / Time No Known Allergies Allergy Unverified 11/23/19 18:23 General Stated Complaint: Sorethroat GOMEZ: 4 Review of Systems Constitutional Constitutional: Reports as per HPI and Denies headache(s) Eyes Eyes: Reports as per HPI, Denies eye discharge and Denies irritation ENT Ears, Nose, Mouth, and Throat: Reports as per HPI and Denies headache(s) Cardiovascular Cardiovascular: Reports as per HPI, Denies chest pain and Denies dyspnea Respiratory Respiratory: Reports as per HPI and Denies dyspnea Gastrointestinal Gastrointestinal: Reports as per HPI, Denies abdominal pain, Denies change in bowel habits, Denies nausea and Denies vomiting Integumentary/Breasts Skin/Breast: Reports as per HPI and Denies rash Neurologic Neurologic: Reports as per HPI and Denies headache(s) [facility] Surgical History section Ligation of fallopian tube Social History Smoking/Tobacco Use Status: Current every day Tobacco Type: cigarettes Alcohol Intake: never Drug use: Never Substance use type: does not use Do you feel safe at home: Yes Do you feel safe in your relationship?: Yes Exam Const General: cooperative, healthy appearing, comfortable, no acute distress, well developed and well groomed Nutritional Appearance: average body habitus and well nourished Orientation: alert and awake [facility] Head: normal to inspection, normocephalic and atraumatic Ears: hearing grossly normal bilaterally, external ears normal and TM's normal bilaterally General nose exam: external nose normal and nares normal Face and sinus: normal facial exam, sinuses nontender and face symmetric Mouth: oral mucosae normal, lip normal, tongue normal, oropharynx normal and moist mucous membranes Teeth and gingiva: dentition normal Throat: uvula midline, abnormal tonsil bilaterally erythema, exudates and hypertrophy 1+ and no peritonsillar masses Eyes General: appearance normal, both eyes and all related structures Neck Neck: normal visual inspection, full ROM, no meningeal signs and lymphadenopathy Resp Effort & Inspection: normal respiratory effort, able to speak in complete sentences and no respiratory distress Auscultation: clear to auscultation bilaterally, no rales, no rhonchi and no wheezes Cardio Rate: regular rate Rhythm: regular rhythm Heart Sounds: S1 normal and S2 normal Skin General skin exam: no rashes or lesions noted Neuro General: patient alert and patient awake Cognition: normal cognition Speech: speech normal Gait: normal gait Psych Appearance: grossly normal and well kempt Mental Status: mental status grossly normal Speech and Movement: speech and movement normal Course Vital Signs Vital signs: Vital Signs Temperature 36.1 C L 11/23/19 18:19 Pulse 93 H 11/23/19 18:19 Respiratory Rate 16 11/23/19 18:19 Blood Pressure 118/71 11/23/19 18:19 Pulse Oximetry 100 11/23/19 18:19 Temperature 36.1 C L 11/23/19 18:19 Temperature Source Temporal Artery Scan 11/23/19 18:19 Pulse 93 H 11/23/19 18:19 Respiratory Rate 16 11/23/19 18:19 Respiratory Effort Non-Labored 11/23/19 18:21 Blood Pressure 118/71 11/23/19 18:19 Blood Pressure Position Sitting 11/23/19 18:19 Pulse Oximetry 100 11/23/19 18:19 Oxygen Delivery Method Room Air 11/23/19 18:19 Oxygen Flow Rate 0 11/23/19 18:19
[2019-11-23 19:00] LABS: Abs Immature Grans 0.01 k/cumm (0.0-0.09); Absolute Basophil Count 0.02 k/cumm (0.0-0.2); Absolute Eosinophil Count 0.05 k/cumm (0.0-0.7); Absolute Lymphocyte Count 1.64 k/cumm (1.2-3.4); Absolute Monocyte Count 0.82 k/cumm (0.11-0.7); Absolute Neutrophil Count 6.18 k/cumm (1.2-6.7); Basophils % 0.2; Eosinophils % 0.6; HCT 41.3 % (36.0-46.0); HGB 13.4 g/dL (12.0-15.5); Immature Grans % 0.1 %; Lymphocytes % 18.8; Mean Corp. HGB Concentration 32.4 g/dL (32.0-36.0); Mean Corpuscular Volume 92.6 fL (80-95); Mean Platelet Volume 9.8 fL (8.0-11.0); Monocytes % 9.4; Neutrophils % 70.9; Platelet Count 252 x1000/uL (130-400); RBC 4.46 m/cumm (4.00-5.20); RBC Distribution Width 14.2 % (11.7-14.6); White Blood Cell Count 8.72 k/cumm (4.4-10.8)
[2019-11-23 19:13] LABS: ALT 16 U/L (14-59); AST 9 U/L (15-37); Albumin 3.5 g/dL (3.4-5.0); Alkaline Phosphatase 44 U/L (46-116); BUN 11 mg/dL (7-18); Bilirubin, Total 0.2 mg/dL (0.2-1.0); CREATININE 0.69 mg/dL (0.55-1.02); Calcium 9.6 mg/dL (8.5-10.1); Chloride 107 mmol/L (98-107); Glucose 101 mg/dL (74-106); Potassium 4.3 mmol/L (3.5-5.1); Sodium 141 mmol/L (136-145); Total Protein 6.9 g/dL (6.4-8.2)
[2019-11-23 19:17] LABS: Mono Screening Negative (Negative)
[2019-11-23 19:34] VITALS: BP 107/59; PULSE 80; RESP 18; O2SAT 98
== END 2019-11-23 19:35 | disposition home or self-care (01) ==
PROVIDERS: Emergency Provider Physician Assistant
DX: J02.9 Acute pharyngitis, unspecified (principal)
CPT/HCPCS: 36415; 80053; 87880; 99283; 85025; 86308; 87081

== ENCOUNTER 2019-11-26 14:35 | Emergency (ER) | payer BC, SELFPAY ==
[2019-11-26 14:38] VITALS: BP 124/80; PULSE 83; TEMP 36.7; O2SAT 100
--- NOTE | 2019-11-26 14:44 | ED.GENADUL_ITS ---
Discharge Plan Disposition Patient Disposition: HOME Condition: Stable Discharge Details Chief Complaint: Sorethroat Clinical Impression: Pharyngitis Primary Care Provider: Unknown,Unknown ED Provider: Uriel Arora Home Meds and New Rx's Prescriptions: New penicillin V potassium 500 mg tablet 500 mg PO TID Qty: 30 RF: 0 Continued acetaminophen [Mapap Extra Strength] 500 MG tablet 1,000 mg PRN PRNRF: 0 ibuprofen 600 mg tablet 600 mg PO QID PRN (Reason: pain) Qty: 30 RF: 0 Lidocaine Viscous 2 % solution 1 applic MM QID PRN (Reason: pain) Qty: 100 RF: 0 Discharge Instructions Instructions: Pharyngitis (ED) Additional Instructions: Penicillin as directed. [id number] Tylenol and/or Motrin as directed for discomfort. I do recommend filling the viscous lidocaine prescribed to you during your previous visit. Salt water gargles as tolerated. Please watch for new or worsening symptoms and return to the ER for any concerns otherwise contact her primary care provider for outpatient reevaluation Stand Alone Forms: Work Release Medical Decision Making 39-year-old female with progressively worsening sore throat, had thorough work- up on Saturday which was negative. Likely viral at that time. Given symptoms are worsening, she now has exudates, radiation to her right ear, I do believe that treating with antibiotics is reasonable. There are no signs of a tonsillar or peritonsillar abscess. Patient appears well, nontoxic. She is well-appearing, afebrile, O2 sats 100% on room air. No evidence of tachycardia. She is able to speak in full sentences and manage her secretions without difficulty. Reviewed the strep culture from her previous visit, negative Patient requests work note for the next 2 days. Will provide prescription of penicillin VK and recommend that she fills her viscous lidocaine. Patient is comfortable with this plan, no additional questions or concerns Medical Records Medical records reviewed: Yes I reviewed the patient's medical records. HPI General Mode of arrival: ambulatory . Date/Time Provider Initiated Documentation: 11/26/19 14:36 . Limitations to Documentation: no limitations . Information obtained by: patient . HPI Narrative: This is a 39-year-old female without significant past medical history presenting for persistent and worsening sore throat and right ear pain. This began roughly 1 week ago, seen in the ER this Saturday, negative strep, negative mono, no leukocytosis. Likely viral at that time and told to treat symptomatically. Was prescribed viscous lidocaine but never filled the medication. Now reports increased pain in her throat, worse in the right side and radiates to her right ear. She denies fever, neck pain, hearing loss, ear drainage, cough, shortness of breath. She reports of a upset stomach but denies any abdominal pain, vomiting, diarrhea, dysuria. Denies rash. Patient will need a work note as work will not allow her back until she is been medically cleared Related Data Home Medications Medication Instructions Recorded Confirmed acetaminophen [Mapap Extra 1,000 mg PRN PRN 08/03/14 11/26/19 Strength] ibuprofen 600 mg PO QID PRN #30 tab 08/05/18 11/26/19 Lidocaine Viscous 1 applic MM QID PRN #100 ml 11/23/19 11/26/19 penicillin V potassium 500 mg PO TID #30 tab 11/26/19 Previous Rx's Medication Instructions Recorded ibuprofen 600 mg PO QID PRN #30 tab 08/05/18 Lidocaine Viscous 1 applic MM QID PRN #100 ml 11/23/19 penicillin V potassium 500 mg PO TID #30 tab 11/26/19 Allergies Allergy/AdvReac Type Severity Reaction Status Date / Time No Known Allergies Allergy Unverified 11/26/19 14:40 General Stated Complaint: Sorethroat GOMEZ: 5 Review of Systems Constitutional Constitutional: Denies fatigue, Denies fever(s) and Denies headache(s) Eyes Eyes: Denies eye discharge ENT Ears, Nose, Mouth, and Throat: Reports otalgia, Denies headache(s) and Reports sore throat Cardiovascular Cardiovascular: Denies chest pain Respiratory Respiratory: Denies cough Gastrointestinal Gastrointestinal: Denies abdominal pain and Denies vomiting Genitourinary Genitourinary: Denies dysuria Musculoskeletal Musculoskeletal: Denies myalgias Integumentary/Breasts Skin/Breast: Denies rash Neurologic Neurologic: Denies headache(s) Endocrine Endocrine: Denies fatigue [facility] Surgical History section Ligation of fallopian tube Social History Smoking/Tobacco Use Status: Current every day Tobacco Type: cigarettes Alcohol Intake: never Drug use: Never Substance use type: does not use Do you feel safe at home: Yes Do you feel safe in your relationship?: Yes Exam Const General: cooperative, healthy appearing, comfortable and no acute distress Orientation: alert and awake [facility] Head: normal to inspection, normocephalic and atraumatic Ears: external ears normal, TM's normal bilaterally and EAC's normal Mouth: oral mucosae normal and moist mucous membranes Throat: uvula midline, abnormal tonsil bilaterally erythema and exudates (Slightly worse on the right), no peritonsillar masses, posterior oropharynx abnormal erythema, no postnasal drainage and uvula not displaced Eyes Conjunctivae: conjunctivae normal Neck Neck: normal visual inspection, full ROM, no meningeal signs, trachea midline and supple Lymphatic: no lymphedema noted (Cervical anterior-superior) Resp Effort & Inspection: normal respiratory effort and able to speak in complete sentences Auscultation: clear to auscultation bilaterally Cardio Rate: regular rate Rhythm: regular rhythm Skin General skin exam: no rashes or lesions noted Neuro General: patient alert, patient awake, moves all extremities and no focal motor deficits Sensory Exam: no sensory deficits noted Psych Appearance: grossly normal Mental Status: mental status grossly normal Course Vital Signs Vital signs: Vital Signs Temperature 36.7 C 11/26/19 14:38 Pulse 83 11/26/19 14:38 Blood Pressure 124/80 11/26/19 14:38 Pulse Oximetry 100 11/26/19 14:38 Temperature 36.7 C 11/26/19 14:38 Temperature Source Temporal Artery Scan 11/26/19 14:38 Pulse 83 11/26/19 14:38 Respiratory Effort Non-Labored 11/26/19 14:42 Blood Pressure 124/80 11/26/19 14:38 Blood Pressure Position Sitting 11/26/19 14:38 Pulse Oximetry 100 11/26/19 14:38 Oxygen Delivery Method Room Air 11/26/19 14:38 Oxygen Flow Rate 0 11/26/19 14:38 Pain Level 2 11/26/19 14:38
== END 2019-11-26 15:35 | disposition home or self-care (01) ==
LOC: ER 15:32
PROVIDERS: Emergency Provider Physician Assistant
DX: J02.9 Acute pharyngitis, unspecified (principal)
CPT/HCPCS: 99283

== ENCOUNTER 2021-06-20 10:54 | Emergency (ER) | payer SELFPAY ==
[2021-06-20 10:59] VITALS: BP 119/78; PULSE 69; RESP 16; TEMP 36.9; O2SAT 99
--- NOTE | 2021-06-20 11:00 | DI.RAD_ITS ---
Exam(s) XR LUMBAR SPINE COMPLETE EXAM: XR LUMBAR SPINE COMPLETE CLINICAL HISTORY: lower back pain. TECHNIQUE: 2D digital imaging was performed. COMPARISON: CR XR lumbar spine complete from 08/05/2018 FINDINGS: Again noted is transitional vertebra anatomy with 6 non rib-bearing vertebrae. The 12th ribs appear rudimentary. There is no evidence of fracture or listhesis. No pars defects. No disc space narrowing. Bone dens ity normal. No osseous lesions. Sacroiliac joints appear unremarkable. No scoliosis. IMPRESSION: No significant radiographic findings. Transitional vertebral anatomy again noted. DATA REPOSITORY: RADIATION DOSE DELIVERED:
--- NOTE | 2021-06-20 11:16 | W.ED.GENAD ---
Discharge Plan Disposition Patient Disposition: HOME Condition: Stable Discharge Details Clinical Impression: Lumbar back sprain Primary Care Provider: Unknown,Unknown ED Provider: Gemma Enriquez Home Meds and New Rx's Prescriptions: New cyclobenzaprine 10 mg tablet 10 mg PO TID PRN (Reason: muscle spasm) Qty: 10 RF: 0 No Action acetaminophen [Mapap Extra Strength] 500 MG tablet 1,000 mg PRN PRNRF: 0 ibuprofen 600 mg tablet 600 mg PO QID PRN (Reason: pain) Qty: 30 RF: 0 Discharge Instructions Instructions: Low Back Strain (ED), Lower Back Exercises (ED) Additional Instructions: Alternate ice and heat. Try massage. Take muscle relaxers as prescribed. It may make you sleepy. Please take Tylenol or Ibuprofen with food every 4-6 hours as needed for pain and swelling. Return to the ER for any loss of bowel or bladder control, numbness tingling in your legs, or around your pelvic area. Follow up with primary care provider in 3-5 days. Return to ED sooner if any worsening or concerns. Increase oral fluids. Stand Alone Forms: Work Release Discharge Data Discharge Date/Time-TO BE ENTERED AT DEPARTURE: 06/20/21 13:02 Medical Decision Making 40-year-old female presents to the ER with chief complaint of lower lumbar pain. She reports that she was lifting on Saturday and reinjured it. She reports middle lumbar spine pain with radiation down her bilateral buttocks into her bilateral lateral thighs. Denies any loss of bowel or bladder control. She does however describe some pressure when sitting so she has not had a bowel movement. Denies any numbness tingling in her lower extremities. No history of surgeries. Past medical history include tubal ligation and . She reports not taking any medications today prior to arrival. She has been trying Advil with little to no relief Urinalysis, urine , L-spine x-ray, Flexeril and Tylenol ordered at this time. EXAM: XR LUMBAR SPINE COMPLETE CLINICAL HISTORY: lower back pain. TECHNIQUE: 2D digital imaging was performed. COMPARISON: CR XR lumbar spine complete from 08/05/2018 FINDINGS: Again noted is transitional vertebra anatomy with 6 non rib-bearing vertebrae. The 12th ribs appear rudimentary. There is no evidence of fracture or listhesis. No pars defects. No disc space narrowing. Bone density normal. No osseous lesions. Sacroiliac joints appear unremarkable. No scoliosis. IMPRESSION: No significant radiographic findings. Transitional vertebral anatomy again noted. Patient ambulatory in department up to bathroom. Patient had little bit of relief with Flexeril and Tylenol. Informed on strict return instructions and follow-up care. Patient given Flexeril to go and prescription. HPI General Mode of arrival: ambulatory. Date/Time Provider Initiated Documentation: 06/20/21 11:07. Limitations to Documentation: no limitations. Information obtained by: patient and RN notes reviewed. HPI Narrative: 40-year-old female presents to the ER with chief complaint of lower lumbar pain. She reports that she was lifting on Saturday and reinjured it. She reports middle lumbar spine pain with radiation down her bilateral buttocks into her bilateral lateral thighs. Denies any loss of bowel or bladder control. She does however describe some pressure when sitting so she has not had a bowel movement. Denies any numbness tingling in her lower extremities. No history of surgeries. Past medical history include tubal ligation and . She reports not taking any medications today prior to arrival. She has been trying Advil with little to no relief Related Data Home Medications Medication Instructions Recorded Confirmed acetaminophen [Mapap Extra 1,000 mg PRN PRN 08/03/14 06/20/21 Strength] ibuprofen 600 mg PO QID PRN #30 tab 08/05/18 06/20/21 cyclobenzaprine 10 mg PO TID PRN #10 tab 06/20/21 Previous Rx's Medication Instructions Recorded ibuprofen 600 mg PO QID PRN #30 tab 08/05/18 cyclobenzaprine 10 mg PO TID PRN #10 tab 06/20/21 Allergies Allergy/AdvReac Type Severity Reaction Status Date / Time No Known Allergies Allergy Unverified 06/20/21 11:05 General Stated Complaint: Nk/Back Pain GOMEZ: 3 Review of Systems All systems reviewed & are unremarkable except as noted in HPI and below Musculoskeletal Musculoskeletal: Reports back pain [facility] Surgical History section Ligation of fallopian tube Social History Smoking/Tobacco Use Status: Current every day Tobacco Type: cigarettes Smoking risk assessment performed?: Yes Alcohol Intake: never Drug use: Never Substance use type: does not use Do you feel safe at home: Yes Do you feel safe in your relationship?: Yes Exam Narrative Exam Narrative: Constitutional: Alert and oriented x3. Appears stated age. Normal body habitus. Head: Normocephalic, no trauma. Eyes: Pupils PERRLA, EOM's intact. Eyelids symmetrical without lesions, discharge, or swelling. Chest: RRR, Normal S1, S2, distal pulses intact. Resp: Lungs clear to auscultation bilaterally, no wheezes, rales, or rhonchi. Musculoskeletal: Normal gait, 5/5 strength to all four extremities. Midline L-spine tenderness, muscle spasm palpated, stiffness. Rectal tone intact. Skin: No suspicious rashes or lesions. Capillary refill less than 2 sec. Neurologic: Cranial nerves II-XII intact. Alert and oriented x 3. DTR's intact. Hematologic/Lymphatic: No ecchymosis, no lymphadenopathy. Course Vital Signs Vital signs: Vital Signs Temperature 36.9 C 06/20/21 10:59 Pulse 69 06/20/21 10:59 Respiratory Rate 16 06/20/21 10:59 Blood Pressure 119/78 06/20/21 10:59 Pulse Oximetry 99 06/20/21 10:59 Temperature 36.9 C 06/20/21 10:59 Temperature Source Skin 06/20/21 10:59 Pulse 69 06/20/21 10:59 Respiratory Rate 16 06/20/21 10:59 Respiratory Effort Non-Labored 06/20/21 10:59 Blood Pressure 119/78 06/20/21 10:59 Blood Pressure Position Standing 06/20/21 10:59 Pulse Oximetry 99 06/20/21 10:59 Oxygen Delivery Method Room Air 06/20/21 10:59 Oxygen Flow Rate 0 06/20/21 10:59 Pain Level 8 06/20/21 10:59 PAWSS Have you Been Recently Intoxicated or Drunk Within the Last 30 days?: No Have you Ever Experienced Previous Episodes of Alcohol Withdrawal?: No Have you ever Experienced Withdrawal Seizures?: No Have you ever Experienced Delirium Tremens(DT)s?: No Have you ever undergone Alcohol Rehabilitation Treatment (i.e, inpt ot outpatient treatment programs)?: No Have you ever Experienced Blackouts?: No Have you ever Combined Alcohol with other Downers within the last 90 days?: No Have you ever Combined Alcohol with any other Substance of Abuse during the last 90 days?: No Positive Blood Alcohol level on Presentation? [PCS.BAL]: No Evidence of Increased Autonomic Activity (i.e. HR>120, tremor, sweating, agitation, nausea)?: No Result: 0
[2021-06-20] MEDS: Cyclobenzaprine 10 MG TAB PO (11:23)
[2021-06-20] MEDS: Acetaminophen 500 MG TAB PO (11:23)
[2021-06-20 11:35] LABS: Bilirubin Negative (Negative); Blood Negative (Negative); Clarity Clear (Clear); Glucose Negative (Negative); Ketones Negative (Negative); Leukocyte Esterase Negative (Negative); Nitrite Negative (Negative); Specific Gravity 1.015 (1.005-1.025); Urobilinogen 0.2 EU/dL (Up TO 0.2)
[2021-06-20 13:03] VITALS: BP 122/83; PULSE 55; RESP 18; TEMP 36.8; O2SAT 99
== END 2021-06-20 13:02 | disposition home or self-care (01) ==
PROVIDERS: Emergency Provider Registered Nurse Emergency
DX: S33.5XXA Sprain of ligaments of lumbar spine, initial encounter (principal); X50.0XXA Overexertion from strenuous movement or load, initial encounter
CPT/HCPCS: 81025; 99283; 72110; 81003

== ENCOUNTER 2021-07-03 13:54 | Emergency (ER) | payer BC, SELFPAY ==
[2021-07-03 14:00] VITALS: BP 124/94; PULSE 101; RESP 18; TEMP 36.3; O2SAT 98
--- NOTE | 2021-07-03 14:39 | W.ED.FU ---
Follow Up Plan: Prachi Vazquez left the emergency department without being seen. Prior to patient leaving, she was informed that there were no beds immediately available in the ED, but that evaluation could begin in the waiting room if she chose, or she could of course wait for an open ED room. Patient stated that she has discomfort with sitting and standing and wants to lie down. She states that she does not want to initiate work-up in the emergency department, and would prefer to go home and lie down and come back at another time to be evaluated. Patient walked out of the emergency department without issue.
--- NOTE | 2021-07-03 14:40 | NUR.NOTE ---
Nursing Note: Dr Daksha Bains spoke with pt in waiting room, told her that exam could be initiated in waiting room, but there would be a wait for a room with a bed. Patient stated that she did not want to wait, she was too uncomfortable. [place]
== END 2021-07-03 14:39 | disposition left before discharge ==
LOC: ER 13:59
PROVIDERS: Emergency Provider Student in an Organized Health Care Education/Training Program
DX: Z53.21 Procedure and treatment not carried out due to patient leaving prior to being seen by health care provider (principal)

== ENCOUNTER 2021-07-12 11:05 | Emergency (ER) | payer SELFPAY ==
--- NOTE | 2021-07-12 11:07 | ED.GENADUL_ITS ---
Discharge Plan Disposition Patient Disposition: HOME Condition: Stable Discharge Details Clinical Impression: Lumbar strain Primary Care Provider: Unknown,Unknown ED Provider: Aleja Bah Home Meds and New Rx's Prescriptions: New methocarbamol 500 mg tablet 500 mg PO Q6H PRN (Reason: muscle spasm) Qty: 14 RF: 0 prednisone 20 mg tablet See Rx Instructions .ROUTE .COMPLEX Qty: 18 RF: 0 Continued acetaminophen [Mapap Extra Strength] 500 MG tablet 1,000 mg PRN PRNRF: 0 ibuprofen 600 mg tablet 600 mg PO QID PRN (Reason: pain) Qty: 30 RF: 0 Discharge Instructions Instructions: Low Back Strain (ED) Additional Instructions: Alternate ice and heat to the affected area(s) several times daily for 20 minutes at a time. Alternate tylenol and motrin as needed and directed for pain. Prescriptions for muscle relaxers and steroids have been sent electronically to your pharmacy. Follow-up with your primary care doctor in 1 week for reevaluation and consideration for referral to physical therapy or cortisone injection if your symptoms do not improve or worsen. Return to the emergency department with any worsening or new concerning symptoms such as loss of bowel or bladder function, leg weakness or numbness, worsening pain or any other concerns. Stand Alone Forms: Work Release Discharge Data Discharge Date/Time-TO BE ENTERED AT DEPARTURE: 07/12/21 12:07 Discharge Physician: Aleja Bah Medical Decision Making 40-year-old female presents with lower back pain for the past 2 weeks that has worsened after frequent exertional activity at work no cauda equina symptoms. Pain is worse with movement. Patient appears mildly uncomfortable but nontoxic. She has reproducible bilateral lower lumbar paraspinal and upper buttock tenderness. No midline spinal tenderness. Neurovascularly intact. No focal deficits. Presentation most of the consistent with lumbar muscle strain/spasm. History and presentation does not appear consistent with lumbar compression fracture, disc herniation or cauda equina syndrome. Do not see indication for imaging at this time patient is agreeable. She denies chance of and has history of tubal ligation. She states she is mainly here for a return to work note but also states Tylenol and ibuprofen is not working. She was given an IM injection of Toradol, p.o. Valium and steroids and prescription for steroids and muscle laxatives electronically to her pharmacy. She was advised to follow-up with her PCP for reevaluation and if her symptoms not improve or worsen, to consider imaging, physical therapy or cortisone injection. Usual and customary return precautions given prior to discharge. Medical Records Medical records reviewed: Yes I reviewed the patient's medical records. HPI General Mode of arrival: ambulatory . Date/Time Provider Initiated Documentation: 07/12/21 11:06 . Limitations to Documentation: no limitations . Information obtained by: patient . HPI Narrative: Patient is a 40-year-old female who presents with lower back pain for the past month, now worse on the right side with radiation into her legs. She states the pain started in the middle of her back and now progressed to both sides, into both of her legs. She states the pain is currently worse on her right side but she denies any bowel or bladder incontinence, saddle anesthesia, fever, abdominal pain, urinary symptoms, leg weakness or numbness. She states she has taken Tylenol and ibuprofen without relief. She states she would not have come to the emergency department if not for her employer requiring her to have a work note stating it is okay for her to return to work. Patient states she does need to return to work but is having difficulty managing the pain. Related Data Home Medications Medication Instructions Recorded Confirmed acetaminophen [Mapap Extra 1,000 mg PRN PRN 08/03/14 07/12/21 Strength] ibuprofen 600 mg PO QID PRN #30 tab 08/05/18 07/12/21 methocarbamol 500 mg PO Q6H PRN #14 tab 07/12/21 prednisone See Rx Instructions .ROUTE 07/12/21 .COMPLEX #18 tab Previous Rx's Medication Instructions Recorded ibuprofen 600 mg PO QID PRN #30 tab 08/05/18 methocarbamol 500 mg PO Q6H PRN #14 tab 07/12/21 prednisone See Rx Instructions .ROUTE 07/12/21 .COMPLEX #18 tab Allergies Allergy/AdvReac Type Severity Reaction Status Date / Time No Known Allergies Allergy Unverified 07/12/21 11:13 General GOMEZ: 4 Review of Systems All systems reviewed & are unremarkable except as noted in HPI and below Constitutional Constitutional: Reports as per HPI, Denies chills and Denies fever(s) Eyes Eyes: Denies blurry vision ENT Ears, Nose, Mouth, and Throat: Denies dizziness, Denies sore throat and Denies throat swelling Cardiovascular Cardiovascular: Denies chest pain and Denies dyspnea Respiratory Respiratory: Denies cough and Denies dyspnea Gastrointestinal Gastrointestinal: Denies abdominal pain, Denies diarrhea and Denies vomiting Genitourinary Genitourinary: Denies hematuria and Denies dysuria Musculoskeletal Musculoskeletal: Reports back pain and Denies numbness Integumentary/Breasts Skin/Breast: Denies lesions and Denies rash Neurologic Neurologic: Denies dizziness, Denies localized weakness and Denies numbness Allergic/Immunologic Allergic/Immunologic: Denies throat swelling COUNTS INCLUDE 234 BEDS AT THE [facility] Medical History (Updated 07/12/21 @ 11:58 by Aleja Bah DO) No significant past medical history Surgical History section Ligation of fallopian tube Social History Smoking/Tobacco Use Status: Current every day Tobacco Type: cigarettes Smoking risk assessment performed?: Yes Alcohol Intake: never Drug use: Never Substance use type: does not use Do you feel safe at home: Yes Do you feel safe in your relationship?: Yes Exam Const General: cooperative, healthy appearing and no acute distress HENMT Head: normal to inspection Face and sinus: normal facial exam Eyes General: appearance normal, both eyes and all related structures Pupils: PERRL EOM: EOM intact bilaterally Neck Neck: normal visual inspection and No submandibular swelling Lymphatic: no lymphadenopathy noted Chest Chest: normal inspection of the chest and no tenderness Resp Effort & Inspection: normal respiratory effort and able to speak in complete sentences Cardio Rate: regular rate GI Inspection: normal to inspection Back/Spine/Pelvis Thoracic/Lumbar Spine: thoracic and lumbar spine normal to inspection, paraspina l tenderness (lower b/l lumbar) and No lumbar spinal tenderness Sacrum: tenderness bilaterally (upper buttocks) Skin General skin exam: no rashes or lesions noted Neuro General: patient alert, patient awake and patient oriented x3 Cognition: normal cognition Speech: speech normal Motor: muscle tone normal throughout and strength 5/5 throughout Sensory Exam: no sensory deficits noted DTR's: Rt Patellar: 1+, Lt Patellar: 1+, Rt Ankle: 1+ and Lt Ankle: 1+ Plantar Reflexes: Equivocal: bilateral (negative babinski b/l ) Extrem General: normal to inspection, full ROM, capillary refill normal, no calf tenderness bilaterally and no edema Other: B/L DP/PT pulses intact. Psych Appearance: grossly normal Mental Status: mental status grossly normal Speech and Movement: speech and movement normal Affect: normal affect
[2021-07-12 11:10] VITALS: BP 118/80; PULSE 97; RESP 16; TEMP 36.7; O2SAT 98
[2021-07-12] MEDS: predniSONE 20 MG TAB 60 MG PO (11:40)
[2021-07-12] MEDS: diazePAM 5 MG TAB PO (11:40)
[2021-07-12] MEDS: Ketorolac 60 MG/2 ML VIAL IM (11:45)
== END 2021-07-12 12:07 | disposition home or self-care (01) ==
PROVIDERS: Emergency Provider Physician Assistant
DX: S39.012A Strain of muscle, fascia and tendon of lower back, initial encounter (principal); X50.0XXA Overexertion from strenuous movement or load, initial encounter; Y99.0 Civilian activity done for income or pay
CPT/HCPCS: 96372; 99284; 99283; J1885; J7512

== ENCOUNTER 2022-03-07 14:49 | Outpatient (REF) | payer MEDICAID, SELFPAY ==
[2022-03-07 15:27] LABS: HCT 43.1 % (36.0-46.0); HGB 13.9 g/dL (11.2-15.7); MCH 30.2 pg (27.0-33.0); MCHC 32.3 % (32.0-36.0); MCV 94 fL (80-95); MPV 11.1 fL (8.0-11.0); Platelet Count 233 10^3/uL (130-400); RDW 14.3 % (11.7-14.6); WBC 4.79 10^3/uL (4.4-10.8)
[2022-03-07 15:47] LABS: ALT 14 U/L (14-59); AST 11 U/L (15-37); Albumin 4.1 g/dL (3.4-5.0); Alkaline Phosphatase 51 U/L (46-116); Anion Gap 9.3 mmol/L (3-11); BUN 17 mg/dL (7-18); Bilirubin, Total 0.3 mg/dL (0.2-1.0); CO2 25.7 mmol/L (21.0-32.0); CREATININE 0.6 mg/dL (0.55-1.02); Calcium 10.4 mg/dL (8.5-10.1); Calculated LDL 215 mg/dL (<100); Chloride 104 mmol/L (98-107); Cholesterol 274 mg/dL (<200); Glucose 77 mg/dL (74-106); HDL Cholesterol 43 mg/dL (40-60); Potassium 4.7 mmol/L (3.5-5.1); Sodium 139 mmol/L (136-145); TSH (W/Ref FT4) 3.45 uIU/mL (0.36-3.74); Triglyceride 80 mg/dL (<150)
[2022-03-08 09:56] LABS: Hepatitis C Ab w Rflx HCV PCR Negative (Negative)
[2022-03-08 10:13] LABS: HIV-1/2 Ag & Ab Screen Negative (Negative)
== END 2022-03-07 14:50 | disposition home or self-care (01) ==
LOC: NCHCN 14:49
PROVIDERS: Visit Provider Family Medicine
DX: R73.03 Prediabetes (principal); E66.9 Obesity, unspecified; Z00.00 Encounter for general adult medical examination without abnormal findings; Z90.89 Acquired absence of other organs; Z11.4 Encounter for screening for human immunodeficiency virus [HIV]; Z11.59 Encounter for screening for other viral diseases
CPT/HCPCS: 80053; 80061; 85027; 86803; 87389; 84443

== ENCOUNTER 2022-03-17 05:19 | Emergency (ER) | payer MEDICAID, SELFPAY ==
[2022-03-17 05:22] VITALS: BP 134/96; PULSE 98; RESP 15; TEMP 36.7; O2SAT 100
--- NOTE | 2022-03-17 05:30 | DI.RAD_ITS ---
Exam(s) XR LUMBAR SPINE COMPLETE EXAM: XR LUMBAR SPINE COMPLETE CLINICAL HISTORY: low back pain. TECHNIQUE: 2D digital imaging was performed of the lumbar spine. Five images were obtained. AP, la teral, right oblique, left oblique and L5-S1 spot views were obtained. COMPARISON: CT CT ABDOMEN PELVIS W from 02/12/2019 CR XR LUMBAR SPINE COMPLETE from 06/20/2021 FINDINGS: BONES: No fracture or destructive lesion. Vertebral bodies are unremarkable. Mild facet arthropathy i s seen at L4-5 and L5-S1. DISKS: Mild disc space narrowing at T12-L1. ALIGNMENT: Lumbar spinal alignment is within normal limits. There is again seen unilateral right spon dylolysis. No spondylolisthesis is present. SOFT TISSUE: Normal. IMPRESSION: No acute abnormality. DATA REPOSITORY: RADIATION DOSE DELIVERED:
[2022-03-17 05:54] VITALS: TEMP 36.9
[2022-03-17] MEDS: diazePAM 10 MG/2 ML SYR 5 MG IM (05:54)
--- NOTE | 2022-03-17 05:56 | ED.GENADUL_ITS ---
Discharge Plan Disposition Patient Disposition: HOME Condition: Stable Discharge Details Clinical Impression: Lumbar back pain Primary Care Provider: Олег Mcleod ED Provider: Aditya Dupree Home Meds and New Rx's Prescriptions: New prednisone 20 mg tablet 60 mg PO DAILY 4 Days Qty: 12 0RF cyclobenzaprine 10 mg tablet 10 mg PO TID PRNQty: 20 0RF gabapentin 300 mg capsule 300 mg PO TID Qty: 30 0RF Continued acetaminophen [Mapap Extra Strength] 500 MG tablet 1,000 mg PRN PRN ibuprofen 600 mg tablet 600 mg PO QID PRN (Reason: pain) Qty: 30 0RF Discontinued methocarbamol 500 mg tablet 500 mg PO Q6H PRN (Reason: muscle spasm) Qty: 14 0RF Discharge Instructions Instructions: Lower Back Exercises (ED) Additional Instructions: continue as needed tylenol and ibuprofen, follow dosing instructions on packaging follow up with your primary care provider within 1-2 weeks if you feel more ill, have fevers or difficulty urinating return to the emergency department Medical Decision Making 41 yo female who denies chronic medical problems comes in with lower back pain. She states it has been an intermittent issues since she strained in almost a year ago. She states the past week the pain has increased without any trauma or falls. She denies fevers, chills, abdomen pain, difficulty urinating or trouble controlling bowel movements. She denies drug use and has noted some radiation of pain down the left leg. She arrives stable though does appear uncomfortable. She localizes the pain to the lower left and mid lumbar region. no saddle anesthesia, no erythema or warmth, normal sensation and pulses in the legs and normal reflexes. No abdomen tenderness. Her symptoms and exam fit with musculoskeletal back pain and possibly disc herniation causing sciatica. She has no findings on exam or history to suggest cauda equina or spinal epidural abscess so do not feel emergent mri indicated. Given the increased pain will obtain plain films to evaluate for degenerative disease and less likely compression fracture and treat her symptoms with valium and toradol as well as prednisone pt now feels better, did give her a dose of gabapentin as well. Xray negative on myread. She is stable and no changes in exam other than appears comfortable now, is going to f/u with pcp and return precautions given Differential Diagnosis Differential Diagnosis: lumbar strain, muscle spasm, disc herniation, sciatica Imaging Data Radiologic Study: Attestation: I personally reviewed and interpreted this imaging study as follows: Imaging: X-Ray My impression: no acute findings HPI General Mode of arrival: ambulatory . Date/Time Provider Initiated Documentation: 03/17/22 05:20 . Limitations to Documentation: no limitations . Information obtained by: patient . History of Present Illness 41 year old F presents to the emergency department with the chief complaint of back pain, described as moderate, Quality is described as aching, and is localized to the back. Patient started experiencing this week(s) (1) and it has been constant. No relieving factors improve symptom(s), No exacerbating factors reported . Patient did receive the following treatments prior to arrival, none Related Data Home Medications Medication Instructions Recorded Confirmed acetaminophen 500 mg tablet (Mapap 1,000 mg PRN PRN 08/03/14 03/17/22 Extra Strength) ibuprofen 600 mg tablet 600 mg PO QID PRN pain #30 tabs 08/05/18 03/17/22 cyclobenzaprine 10 mg tablet 10 mg PO TID PRN #20 tabs 03/17/22 gabapentin 300 mg capsule 300 mg PO TID #30 caps 03/17/22 prednisone 20 mg tablet 60 mg PO DAILY 4 days #12 tabs 03/17/22 Previous Rx's Medication Instructions Recorded ibuprofen 600 mg tablet 600 mg PO QID PRN pain #30 tabs 08/05/18 cyclobenzaprine 10 mg tablet 10 mg PO TID PRN #20 tabs 03/17/22 gabapentin 300 mg capsule 300 mg PO TID #30 caps 03/17/22 prednisone 20 mg tablet 60 mg PO DAILY 4 days #12 tabs 03/17/22 Allergies Allergy/AdvReac Type Severity Reaction Status Date / Time No Known Allergies Allergy Unverified 07/12/21 11:13 General Stated Complaint: Nk/Back Pain GOMEZ: 4 Review of Systems All systems reviewed & are unremarkable except as noted in HPI and below Constitutional Constitutional: Denies chills, Denies fever(s) and Denies weakness Cardiovascular Cardiovascular: Denies chest pain and Denies dyspnea Respiratory Respiratory: Denies dyspnea Gastrointestinal Gastrointestinal: Denies abdominal pain, Denies nausea and Denies vomiting Genitourinary Genitourinary: Denies dysuria Musculoskeletal Musculoskeletal: Denies joint swelling Integumentary/Breasts Skin/Breast: Denies rash Neurologic Neurologic: Denies weakness PFSH All Active Problems (Updated 03/17/22 @ 06:28 by Aditya Dupree MD) Lumbar strain (Acute) Lumbar back pain (Acute) Lumbar back sprain (Acute) Medical History (Updated 03/17/22 @ 06:28 by Aditya Dupree MD) No significant past medical history Surgical History section Ligation of fallopian tube Social History Smoking/Tobacco Use Status: Current every day Tobacco Type: cigarettes Smoking risk assessment performed?: Yes Alcohol Intake: never Drug use: Never Substance use type: does not use Do you feel safe at home: Yes Do you feel safe in your relationship?: Yes Exam Const Orientation: alert HENMT Head: normal to inspection Ears: external ears normal General nose exam: external nose normal Mouth: moist mucous membranes Eyes General: appearance normal, both eyes and all related structures Neck Neck: normal visual inspection Resp Effort & Inspection: normal respiratory effort and able to speak in complete sentences Cardio Rate: regular rate Back/Spine/Pelvis Back: no CVA tenderness Skin General skin exam: no rashes or lesions noted Neuro General: patient alert and patient oriented x3 Extrem General: normal to inspection Psych Mental Status: mental status grossly normal Course Vital Signs Vital signs: Vital Signs Temperature 36.7 C 03/17/22 05:22 Pulse 98 H 03/17/22 05:22 Respiratory Rate 15 03/17/22 05:22 Blood Pressure 134/96 H 03/17/22 05:22 Pulse Oximetry 100 03/17/22 05:22 Temperature 36.7 C 03/17/22 05:22 Temperature Source Skin 03/17/22 05:22 Pulse 98 H 03/17/22 05:22 Respiratory Rate 15 03/17/22 05:22 Respiratory Effort 03/17/22 05:36 Blood Pressure 134/96 H 03/17/22 05:22 Blood Pressure Position Standing 03/17/22 05:22 Pulse Oximetry 100 03/17/22 05:22 Oxygen Delivery Method Room Air 03/17/22 05:22 Oxygen Flow Rate 0 03/17/22 05:22 Pain Level 8 03/17/22 05:22 Comment 03/17/22 05:22
[2022-03-17] MEDS: predniSONE 20 MG TAB 60 MG PO (06:01)
[2022-03-17] MEDS: Ketorolac 30 MG/ML VIAL IM (06:01)
[2022-03-17] MEDS: Gabapentin 300 MG CAP PO (06:36)
[2022-03-17 07:07] VITALS: PULSE 80; O2SAT 100
--- NOTE | 2022-03-17 07:15 | DI.VRAD_ITS ---
PROCEDURE INFORMATION: Exam: XR Lumbosacral Spine Exam date and time: 03/17/2022 5:59 AM Age: 41 years old Clinical indication: Low back pain TECHNIQUE: Imaging protocol: Radiologic exam of the lumbosacral spine. Views: 4 or 5 views. COMPARISON: CR XR LUMBAR SPINE COMPLETE 06/20/2021 11:42 AM FINDINGS: Bones/joints: Again noted are 6 [id number] lumbar vertebrae. The 12th ribs appear rudimentary. Vertebral body heights and alignment are maintained. Mild disc space narrowing at lumbosacral junction and lower lumbar facet arthropathy. Soft tissues: No acute abnormality. IMPRESSION: Transitional vertebral anatomy again noted. Mild lower lumbar spondylosis. Dictated and Authenticated by: Emilee Cardenas MD. Ordering:LILA Burgess MD
== END 2022-03-17 07:14 | disposition home or self-care (01) ==
PROVIDERS: Emergency Provider Emergency Medicine; PCP Family Medicine
DX: M54.50 Low back pain, unspecified (principal)
CPT/HCPCS: 96372; 99284; 72110; 99283; J1885; J3360; J7512

== ENCOUNTER 2022-03-27 01:55 | Emergency (ER) | payer MEDICAID, SELFPAY ==
[2022-03-27 01:58] VITALS: BP 128/81; PULSE 89; RESP 20; TEMP 36.8; O2SAT 97
[2022-03-27] MEDS: diazePAM 10 MG/2 ML SYR IM (03:24)
[2022-03-27] MEDS: HYDROmorphone 2 MG/ML VIAL 1 MG IM (04:34)
--- NOTE | 2022-03-27 04:53 | ED.GENADUL_ITS ---
Discharge Plan Disposition Patient Disposition: HOME Condition: Good Discharge Details Clinical Impression: Acute left lumbar radiculopathy Primary Care Provider: Олег Mcleod ED Provider: Kingston Geronimo Home Meds and New Rx's Prescriptions: Continued acetaminophen [Mapap Extra Strength] 500 MG tablet 1,000 mg PRN PRN ibuprofen 600 mg tablet 600 mg PO QID PRN (Reason: pain) Qty: 30 0RF prednisone 10 mg tablet See Taper PO 4XD Taper: Prednisone 10mg taper 40 tab Daily for 4 Days and 0 Hour 30 tab Daily for 4 Days and 0 Hour 20 tab Daily for 4 Days and 0 Hour 10 tab Daily for 4 Days and 0 Hour 0 tab Daily for 2 Days and 0 Hour Label Comments: TAKE 4 TABLETS DAILY FOR 4 DAYS,3 TABLET DAILY FOR 4 DAYS,2 TABLETS DAILY FOR 4 DAYS, 1TABLET DAILY FOR 4 DAYS THEN STOP ketorolac 10 mg tablet 1 tab PO TID Label Comments: TAKE ONE TABLET BY MOUTH THREE TIMES A DAY pantoprazole 40 mg tablet,delayed release (DR/EC) 1 tab PO DAILY Label Comments: TAKE ONE TABLET BY MOUTH EVERY DAY cyclobenzaprine 10 mg tablet 10 mg PO TID PRNQty: 20 0RF gabapentin 300 mg capsule 300 mg PO TID Qty: 30 0RF Discharge Instructions Instructions: Lumbar Radiculopathy (ED) Additional Instructions: At this time your symptoms remain consistent with mild radiculopathy. Please continue taking your medications as directed. Please follow-up closely with your primary care provider. Please take the pain pills as needed. Please avoid any heavy lifting. Use a heating pad on your back as often as possible. If you develop any numbness or tingling in your groin, change in sensation with wiping, bowel or bladder incontinence, please return immediately for reassessment. Please follow-up with your scheduled MRI appointment. If you notice any worsening of your symptoms, or any new symptoms such as vomiting, diarrhea, fever, chills, shortness of breath, chest pain, numbness, weakness, or fainting , please return immediately to the emergency department for reevaluation. Please follow up with your primary care provider as soon as possible for reassessment and reevaluation. As always, it was a pleasure participating in your medical care today. Referrals: Олег Mcleod MD [Primary Care Provider] - Medical Decision Making This is a 41-year-old female with a past medical history of depression, tubal ligation, with an injury of her spine/back 1 year ago when she was doing heavily lifting, and subsequently she has had worsening of her symptoms starting on the sixth of this month, which led to numbness and tingling on the lateral aspect of her left lower extremity, as well as increased back pain. She came to the emergency department on 03/17, x-rays were relatively unremarkable at that time, the patient was started on Tylenol, Motrin, and methocarbamol. 2 days later she went to the [facility] emergency department, and she was given Toradol, steroids, and discharge. She saw her primary care provider who was made referral to the [facility] spine center, MRI order has been placed for April 16. She has had continued pain and tingling on her left lateral leg since then. She presents here tonight for reassessment for continued pain. Patient denies any saddle anesthesia, numbness or tingling in the groin, change in sensation when wiping. Patient denies any change in sensation during sexual intercourse, bowel or bladder incontinence, leakage, or retention. Patient denies any weakness in the lower extremities, atypical falls or imbalance. No other complaints at this time. No other modifying factors. Exam demonstrates no midline spinal tenderness, mild left sacral achiness. Mild paraspinal spasms. Good rectal tone. No saddle anesthesia whatsoever. Diminished sensation on the lateral aspect of the left lower extremity extending down to the foot. Normal reflexes, normal strength and muscle tone. I had a long discussion with the patient regarding her current medical management. She is also taking gabapentin currently. She appears to be managed well medically and is receiving steroids currently, gabapentin, methocarbamol, and Tylenol and Motrin. I discussed with her the option of CT image, however also discussed how MRI is the ideal test which she already has scheduled. She would like to hold off on CT imaging for the time being. She states that her main goal is pain control until she can go to the spine center and have the MRI performed. We will give IM Valium and reassess. Currently she shows no concerning red flags for cauda equina syndrome, or current life-threatening neurovascular compromise. Symptoms are most consistent with radiculopathy. 4:01 AM On reassessment the patient has had no improvement with the Valium. We will give IM morphine. Will monitor closely. Patient would still like to hold off on CT imaging. 5:01 AM Patient feeling much better. She feels well and would like to go home. Repeat exam continues to show no signs of cauda equina syndrome, or life-threatening neurovascular compromise. She still would like to hold off on imaging. We will give a small bottle of [place] for home use, recommend close follow-up with PCP. Discussed red flags which return. I have extensively reviewed the treatment plan and discharge instructions with the patient. I have addressed all patient concerns at this time. The patient was made aware of what symptoms to monitor for that would warrant a return to the emergency department. Discussed the plan with the patient, they demonstrate verbal understanding and agreement with our assessment and plan at this time. The documentation in this chart was dictated using [employer]! dictation software. Please excuse any dictation errors. HPI General Date/Time Provider Initiated Documentation: 03/27/22 02:01 . HPI Narrative: This is a 41-year-old female with a past medical history of depression, tubal ligation, with an injury of her spine/back 1 year ago when she was doing heavily lifting, and subsequently she has had worsening of her symptoms starting on the sixth of this month, which led to numbness and tingling on the lateral aspect of her left lower extremity, as well as increased back pain. She came to the emergency department on 03/17, x-rays were relatively unremarkable at that time, the patient was started on Tylenol, Motrin, and methocarbamol. 2 days later she went to the [facility] emergency department, and she was given Toradol, steroids, and discharge. She saw her primary care provider who was made referral to the [facility] spine center, MRI order has been placed for April 16. She has had continued pain and tingling on her left lateral leg since then. She presents here tonight for reassessment for continued pain. Patient denies any saddle anesthesia, numbness or tingling in the groin, change in sensation when wiping. Patient denies any change in sensation during sexual intercourse, bowel or bladder incontinence, leakage, or retention. Patient denies any weakness in the lower extremities, atypical falls or imbalance. No other complaints at this time. No other modifying factors. Related Data Home Medications Medication Instructions Recorded Confirmed acetaminophen 500 mg tablet (Mapap 1,000 mg PRN PRN 08/03/14 03/27/22 Extra Strength) ibuprofen 600 mg tablet 600 mg PO QID PRN pain #30 tabs 08/05/18 03/27/22 cyclobenzaprine 10 mg tablet 10 mg PO TID PRN #20 tabs 03/17/22 03/27/22 gabapentin 300 mg capsule 300 mg PO TID #30 caps 03/17/22 03/27/22 ketorolac 10 mg tablet 1 tab PO TID 03/27/22 03/27/22 pantoprazole 40 mg tablet,delayed 1 tab PO DAILY 03/27/22 03/27/22 release prednisone 10 mg tablet See Taper PO 4XD 03/27/22 03/27/22 Previous Rx's Medication Instructions Recorded ibuprofen 600 mg tablet 600 mg PO QID PRN pain #30 tabs 08/05/18 cyclobenzaprine 10 mg tablet 10 mg PO TID PRN #20 tabs 03/17/22 gabapentin 300 mg capsule 300 mg PO TID #30 caps 03/17/22 Allergies Allergy/AdvReac Type Severity Reaction Status Date / Time No Known Allergies Allergy Unverified 03/27/22 02:04 General Stated Complaint: Orthopedic GOMEZ: 3 Review of Systems All systems reviewed & are unremarkable except as noted in HPI and below PFSH All Active Problems (Updated 03/27/22 @ 05:06 by Kingston Geronimo DO) Lumbar strain (Acute) Lumbar back pain (Acute) Acute left lumbar radiculopathy (Acute) Lumbar back sprain (Acute) Medical History No significant past medical history Surgical History section Ligation of fallopian tube Social History Smoking/Tobacco Use Status: Current every day Tobacco Type: cigarettes Smoking risk assessment performed?: Yes Alcohol Intake: never Drug use: Never Substance use type: does not use Do you feel safe at home: Yes Do you feel safe in your relationship?: Yes Exam Narrative Exam Narrative: 1.Const: Well-nourished, Well-developed, appearing stated age 2.Eyes: PERRL, no conjunctival injection, and symmetrical lids. 3.ENT: Atraumatic external nose and ears. Moist MM. Neck: Symmetric, trachea midline, No thyromegaly. 4.CVS: +S1/S2, No murmurs or gallops. Peripheral pulses 2+ and equal in all ext remities. Brisk capillary refill in all extremities. 5.RESP: Unlabored respiratory effort. Clear to auscultation bilaterally. No wheezes rales or rhonchi 6.GI: Soft, Nontender/Nondistended, No hepatosplenomegaly. No guarding or rebound. 7.MSK: Normocephalic/Atraumatic, Extremities w/o deformity or ttp No cyanosis or clubbing, Normal movement of all extremities. No midline tenderness to palpation over the CTLS spine. Normal ROM in flexion, extension, side bend, and rotation. Patient has +5 out of 5 strength in the lower extremities in dorsiflexion and plantarflexion, knee flexion and extension, hip flexion and extension. Normal strength for dorsiflexion and plantar flexion of the great toe bilaterally. There is +2 over 2 dorsalis pedis pulses bilaterally. There is normal sensation to the skin with light touch at the foot, knee, and hip., However she does demonstrate diminished sensation on the lateral aspect of the left thigh, extending all the way down to the left lateral foot. Normal saddle sensation. Good sensation over the deep sural nerve area bilaterally. Rectal exam demonstrates good rectal tone and perirectal sensation. Reflexes are +2 over 4 in the patellar reflex bilaterally. No clonus of the lower extremities. Downward Babinski bilaterally. 8.Skin: Warm, Dry. No rashes or lesions. 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 Sensation grossly intact, no focal neurologic deficits. 10.Psych: (AAO) x3. Appropriate mood and affect Course Vital Signs Vital signs: Vital Signs Temperature 36.8 C 03/27/22 01:58 Pulse 89 03/27/22 01:58 Respiratory Rate 20 03/27/22 01:58 Blood Pressure 128/81 03/27/22 01:58 Pulse Oximetry 97 03/27/22 01:58 Temperature 36.8 C 03/27/22 01:58 Temperature Source Skin 03/27/22 01:58 Pulse 89 07/19/22 01:58 Respiratory Rate 20 03/27/22 01:58 Respiratory Effort Non-Labored 03/27/22 02:08 Blood Pressure 128/81 03/27/22 01:58 Blood Pressure Position Supine 03/27/22 01:58 Pulse Oximetry 97 03/27/22 01:58 Oxygen Delivery Method Room Air 03/27/22 01:58 Oxygen Flow Rate 0 03/27/22 01:58 Pain Level 10 03/27/22 03:24
== END 2022-03-27 05:31 | disposition home or self-care (01) ==
PROVIDERS: Emergency Provider Student in an Organized Health Care Education/Training Program; PCP Family Medicine
DX: M54.16 Radiculopathy, lumbar region (principal)
CPT/HCPCS: 96372; 99284; 99283; J3360

== ENCOUNTER → 2022-04-16 01:47 | Outpatient (CLI) | payer MEDICAID, SELFPAY ==
--- NOTE | 2022-04-16 | DI.MRI_ITS ---
Exam(s) MR LUMBAR SPINE WO EXAM: MR LUMBAR SPINE WO CLINICAL HISTORY: LT SCIATICA, M54.32. TECHNIQUE: Multiplanar multisequence MRI of the Lumbar spine was performed. COMPARISON: CT CT ABDOMEN PELVIS W from 02/12/2019 CR,XR XR LUMBAR SPINE COMPLETE from 03/17/2022 FINDINGS: Plain films form 03/17/2022 reviewed. These plain films reveal transitional anatomy which is importa nt here as this patient may be come a surgical candidate. Therefore plain film review correlation wi MRI findings recommended so as to avoid operating on the wrong level. I recommend a set of thorac ic plain films to aided accurate counting here. MRI FINDINGS: Conus medullaris is at normal level. There is no evidence of conus mass nor subjacent clumping of in trathecal nerve roots to suggest arachnoiditis. The distal thecal sac appears unremarkable.There is no evidence of Tarlov intrasacral cysts nor other significant findings within the sacral canal Bones:There are no fractures nor ominous osseous lesions in the lumbar vertebral bodies and visualize d sacrum. With respect to the individual levels... T12-L1: Unremarkable L1-2: Normal disc height and signal. No disc herniation nor central canal stenosis.No foraminal steno sis L2-3: Normal disc height. No disc herniation nor central canal stenosis.No foraminal stenosis.No face t arthropathy. L3-4: Normal disc height. Left-sided annular bulging which extends into the floor of the exiting lef t neural foramen. Central canal dimensions are lower normal and there is no foraminal stenosis on ei ther side at this level. No facet arthropathy. L4-5: Normal disc height. Posteriorly there is a tiny focus of signal abnormality in the posterior l eft side of the annulus consistent with a small tear. However, there is no evidence of disc herniati on at this time. Central canal dimensions lower normal. No foraminal stenosis. L5-S1: Slightly decreased disc height. There is a huge disc herniation at this level, this superimpo sed upon significant annular bulging. This disc herniation extends posteriorly 2 cm, significantly c ompressing the thecal sac at this level. This disc herniation is 2 cm wide and 2.2 cm craniocaudal. Impresses upon both the thecal sac and nerve roots. Significant resulting central canal stenosis bu t no true foraminal stenosis. This protrusion does not extend into the exiting neural foramina at th is level. Soft tissues: paraspinal soft tissues appear unremarkable. IMPRESSION: 1. Very large disc herniation at L5-S1 level measuring 2 x 2 x 2.2 cm and causing significant seth vincent of the thecal sac. However does not extend into either exiting neural foramen. 2. Other findings at L3-4 and L4-5 levels as described above. 3. No fractures. No significant osseous lesions. No listhesis. Please note that there is transitional anatomy here. DATA REPOSITORY:
== END ==
PROVIDERS: PCP Family Medicine; Visit Provider Family Medicine
DX: M51.27 Other intervertebral disc displacement, lumbosacral region (principal)
CPT/HCPCS: 72148

== ENCOUNTER 2022-06-01 15:14 | Outpatient (REF) | payer MEDICAID, SELFPAY ==
[2022-06-01 18:39] LABS: Abs Immature Grans 0.02 10^3/uL (0.0-0.06); Absolute Basophil Count 0.02 10^3/uL (0.0-0.2); Absolute Eosinophil Count 0.02 10^3/uL (0.0-0.7); Absolute Lymphocyte Count 1.92 10^3/uL (1.2-3.4); Absolute Monocyte Count 0.51 10^3/uL (0.1-0.8); Absolute Neutrophil Count 5.64 10^3/uL (1.2-6.7); Basophils % 0.2; Eosinophils % 0.2; HCT 44.8 % (36.0-46.0); HGB 14.6 g/dL (11.2-15.7); Immature Grans % 0.2; Lymphocytes % 23.6; MCH 30.7 pg (27.0-33.0); MCHC 32.6 % (32.0-36.0); MCV 94 fL (80-95); MPV 10.9 fL (8.0-11.0); Monocytes % 6.3; Neutrophils % 69.5; Platelet Count 261 10^3/uL (130-400); RBC 4.76 10^6/uL (3.93-5.22); RDW 15.2 % (11.7-14.6); RDW-SD 53.2 fL; WBC 8.13 10^3/uL (4.4-10.8)
[2022-06-01 18:44] LABS: Prothrombin Time 9.6 sec (9.3-11.0)
[2022-06-01 18:53] LABS: Anion Gap 10.2 mmol/L (3-11); BUN 11 mg/dL (7-18); CO2 25.8 mmol/L (21.0-32.0); CREATININE 0.8 mg/dL (0.55-1.02); Calcium 11.4 mg/dL (8.5-10.1); Chloride 108 mmol/L (98-107); Estimated GFR 94.28 (mL/min/1.73m2); Glucose 107 mg/dL (74-106); Potassium 5.1 mmol/L (3.5-5.1); Sodium 144 mmol/L (136-145)
== END 2022-06-01 15:15 | disposition home or self-care (01) ==
LOC: NCHCN 15:14
PROVIDERS: PCP Family Medicine; Visit Provider Family Medicine
DX: M54.59 Other low back pain (principal); Z01.818 Encounter for other preprocedural examination
CPT/HCPCS: 80048; 85025; 85610

== ENCOUNTER 2022-11-28 17:09 | Outpatient (REF) | payer MEDICAID, SELFPAY ==
--- NOTE | 2022-11-28 15:00 | PAPFT_PTH ---
PATIENT: Prachi Vazquez LOC: [facility] U#:[id number] AGE/SX: 42/F ROOM: RE11/28/[address]: Олег Mcleod : 1980 BED: DIS: 11/28/2022 SPEC #: [id number] RECD: 11/29/22 12:40 STATUS: TAMMY RELuis #: [id number] SHELLY: 11/28/22 15:[address]: Олег Mcleod [facility] Cytology RECD BY: Renee Caruso Tissues: 1 - CX/ENDOCX FOR PAP SMEARS Procedures: PAP THIN PREP/UVM Screening HPV DNA PROBE Comments: [id number]
== END 2022-11-28 17:10 | disposition home or self-care (01) ==
LOC: LBN 17:09
PROVIDERS: PCP Family Medicine; Visit Provider Family Medicine
DX: Z12.4 Encounter for screening for malignant neoplasm of cervix (principal); Z11.51 Encounter for screening for human papillomavirus (HPV)
CPT/HCPCS: 88142; 87624

== ENCOUNTER 2023-02-26 15:58 | Emergency (ER) | payer MEDICAID, SELFPAY ==
--- NOTE | 2023-02-26 | DI.RAD_ITS ---
Exam(s) XR LUMBAR SPINE AP, LAT EXAM: XR LUMBAR SPINE AP, LAT CLINICAL HISTORY: pain with radiculopathy. TECHNIQUE: 2D digital imaging was performed of the lumbar spine. Three images were obtained. AP, l ateral and L5-S1 spot views were obtained. COMPARISON: CR,XR XR LUMBAR SPINE COMPLETE from 03/17/2022 MR MR LUMBAR SPINE WO from 04/16/2022 FINDINGS: BONES: No fracture or destructive lesion. There again seen 6 non rib-bearing lumbar vertebra. Verteb ral bodies are unremarkable. No facet hypertrophy identified. DISKS: There is again seen mild disc space narrowing at the lumbosacral junction. ALIGNMENT: Lumbar spinal alignment is within normal limits. No spondylolysis or spondylolisthesis. SOFT TISSUE: There is a moderate amount of stool throughout the colon. IMPRESSION: 1. Stable appearance of the lumbar spine. 2. Moderate amount of stool in the colon which may represent constipation. DATA REPOSITORY: RADIATION DOSE DELIVERED:
[2023-02-26 16:00] VITALS: BP 125/59; PULSE 89; RESP 16; TEMP 37.1; O2SAT 100
[2023-02-26] MEDS: Acetaminophen 500 MG TAB 1000 MG PO (17:15)
[2023-02-26] MEDS: Ketorolac 30 MG/ML VIAL IM (17:15)
[2023-02-26] MEDS: Lidocaine 5% Patch 2 PATCH TP (17:15)
--- NOTE | 2023-02-26 17:26 | ED.GENADUL_ITS ---
Discharge Plan Disposition Patient Disposition: Home Condition: Stable Discharge Details Clinical Impression: Lumbar back sprain Primary Care Provider: Олег Mcleod ED Provider: Nasra Brooks Home Meds and New Rx's Prescriptions: New lidocaine 5 % Adhesive Patch,Medicated 2 patch topical Q24H Qty: 0 0RF Continued pregabalin [Lyrica] 25 mg capsule 100 mg PO BID amitriptyline 50 mg tablet 50 mg PO QHS acetaminophen [Mapap Extra Strength] 500 MG tablet 1,000 mg PRN PRN ibuprofen 600 mg tablet 600 mg PO QID PRN (Reason: pain) Qty: 30 0RF Discharge Instructions Instructions: Lower Back Exercises (ED) Additional Instructions: No bending lifting or twisting from the waist. No lifting greater than 5 pounds, equivalent to a gallon of milk. Take ibuprofen 600 mg 4 times daily with food for 5 days scheduled to help decrease inflammation can add acetaminophen at 1000 mg 3 times daily for breakthrough pain Can use heat or ice to affected area If lidocaine patch is effective you can pick that up [id number] at your local pharmacy Referrals: [facility] [Outside] (Pain management and spine orthopedics) Bryan Rebolledo [ [facility] STAFF PHYSICIAN] - Олег Mcleod MD [Primary Care Provider] - Luis Antonio Pineda PT [PHYSICAL THERAPIST] - Discharge Data Discharge Date/Time-TO BE ENTERED AT DEPARTURE: 02/26/23 18:48 Medical Decision Making Patient presents for evaluation of low back pain verbalizing some frustration with primary care provider which prompted this visit. There is no symptoms of saddle anesthesia or symptoms concerning with cord compression syndrome. There has been no recent trauma HPI General Mode of arrival: ambulatory . Date/Time Provider Initiated Documentation: 02/26/23 15:58 . Limitations to Documentation: no limitations . Information obtained by: patient . HPI Narrative: This is a 42-year-old female patient with a significant past medical history of low back pain, status post laminectomy following a back injury she had 2 years ago. She is followed by spine at [facility] and by pain management at [facility]. She denies any recent injuries states that most of her initial pain was on the left and that is stable but she has had being increasing pain now on the right with pain and numbness that radiates on the lateral aspect of her right leg. She denies any saddle anesthesia denies any loss of bowel or bladder. She states that this pain is her chronic pain but again that it has been worsening over several months. She was seen by her primary care provider's office who prescribed her Lyrica. She states she has not been able to fill this yet so has not started it. She has trialed gabapentin in the past and states that was never effective she does not use acetaminophen or ibuprofen as she states that is not effective either. She took 1 Toradol tablet this morning at 7 AM and has had nothing since. Related Data Home Medications Medication Instructions Recorded Confirmed acetaminophen 500 mg tablet (Mapap 1,000 mg PRN PRN 08/03/14 03/27/22 Extra Strength) ibuprofen 600 mg tablet 600 mg PO QID PRN pain #30 tabs 08/05/18 03/27/22 amitriptyline 50 mg tablet 50 mg PO QHS 12/05/22 pregabalin 25 mg capsule (Lyrica) 100 mg PO BID 12/05/22 lidocaine 5 % topical patch 2 patch topical Q24H #0 ea 02/26/23 Previous Rx's Medication Instructions Recorded ibuprofen 600 mg tablet 600 mg PO QID PRN pain #30 tabs 08/05/18 lidocaine 5 % topical patch 2 patch topical Q24H #0 ea 02/26/23 Allergies Allergy/AdvReac Type Severity Reaction Status Date / Time No Known Allergies Allergy Unverified 03/27/22 02:04 General Stated Complaint: Nk/Back Pain GOMEZ: 4 Review of Systems All systems reviewed & are unremarkable except as noted in HPI and below PFSH All Active Problems (Updated 02/26/23 @ 18:28 by Nasra Brooks NP) Lumbar strain (Acute) Lumbar back sprain (Acute) Medical History (Updated 02/26/23 @ 18:28 by Nasra Brooks NP) Anxiety with depression Celiac disease Factor II deficiency GERD (gastroesophageal reflux disease) History of prediabetes Hyperlipidemia Insomnia Iron deficiency Low back pain Migraine No significant past medical history Obesity Sciatica of left side Urinary incontinence in female Surgical History (Updated 12/04/22 @ 14:28 by Paola Abbott) section H/O lumbar discectomy H/O partial thyroidectomy Ligation of fallopian tube Family History (Updated 12/04/22 @ 14:25 by Paola Abbott) Maternal Grandmother Cancer LUNG CANCER Social History Smoking/Tobacco Use Status: Current every day Tobacco Type: cigarettes Smoking risk assessment performed?: Yes Alcohol Intake: never Drug use: Never Substance use type: does not use Do you feel safe at home: Yes Do you feel safe in your relationship?: Yes Exam Const General: cooperative, frail appearing and ill appearing chronically Nutritional Appearance: overweight Orientation: alert, awake and oriented x3 HENMT Head: normal to inspection, normocephalic and atraumatic Mouth: oral mucosae normal Neck Neck: normal visual inspection and full ROM Chest Chest: normal inspection of the chest Resp Effort & Inspection: normal respiratory effort Cardio Rate: regular rate Rhythm: regular rhythm GI Inspection: normal to inspection Back/Spine/Pelvis Cervical Spine: normal cervical lordosis Thoracic/Lumbar Spine: thoracic and lumbar spine normal to inspection and surgical scar(s) present Skin General skin exam: no rashes or lesions noted Neuro General: patient alert, patient awake, patient oriented x3, gait normal, tone normal and moves all extremities Cognition: normal cognition Speech: speech normal Gait: normal gait Motor: muscle tone normal throughout, strength 5/5 throughout and other (Brisk reflexes bilateral lower extremities) Sensory Exam: no sensory deficits noted Extrem General: no pedal edema Course Vital Signs Vital signs: Vital Signs Temperature 37.1 C 02/26/23 16:00 Pulse 89 02/26/23 16:00 Respiratory Rate 16 02/26/23 16:00 Blood Pressure 125/59 L 02/26/23 16:00 Pulse Oximetry 100 02/26/23 16:00 Temperature 37.1 C 02/26/23 16:00 Temperature Source Skin 02/26/23 16:00 Pulse 89 02/26/23 16:00 Respiratory Rate 16 02/26/23 16:00 Blood Pressure 125/59 L 02/26/23 16:00 Blood Pressure Position Sitting 02/26/23 16:00 Pulse Oximetry 100 02/26/23 16:00 Oxygen Delivery Method Room Air 02/26/23 16:00 Oxygen Flow Rate 0 02/26/23 16:00 Pain Level 9 02/26/23 16:00
[2023-02-26 17:48] LABS: Bilirubin Negative (Negative); Blood Large (Negative); Clarity Clear (Clear); Glucose Negative (Negative); Ketones Negative (Negative); Leukocyte Esterase Negative (Negative); Nitrite Negative (Negative); Specific Gravity 1.015 (1.005-1.025); Urobilinogen 0.2 mg/dL (Up to 0.2)
[2023-02-26 17:55] LABS: Bacteria Few HPF (Negative); C & S Indicated? No/Sq. Contamination; Casts Negative LPF (Negative); Crystals Moderate Amorphous HPF (Negative); Epithelial Cells Moderate HPF (Negative); Mucus Negative (Negative); RBC 20-50 HPF (0-2)
--- NOTE | 2023-02-26 17:55 | DI.VRAD_ITS ---
PROCEDURE INFORMATION: Exam: XR Lumbosacral Spine Exam date and time: 02/26/2023 5:19 PM Age: 42 years old Clinical indication: Other: Pain with radiculopathy TECHNIQUE: Imaging protocol: Radiologic exam of the lumbosacral spine. Views: 2 or 3 views. COMPARISON: MR LUMBAR SPINE WO 04/16/2022 1:40 PM FINDINGS: Bones/joints: Mild loss of disc space at L5-S1 No acute fracture. Normal alignment. Soft tissues: Unremarkable. IMPRESSION: No acute findings. Mild degenerative changes at the lumbosacral junction Dictated and Authenticated by: Kareem Klein MD. Ordering:NAT Hammonds MD
== END 2023-02-26 18:48 | disposition home or self-care (01) ==
PROVIDERS: Emergency Provider Nurse Practitioner Acute Care; PCP Family Medicine
DX: S33.5XXA Sprain of ligaments of lumbar spine, initial encounter (principal); X58.XXXA Exposure to other specified factors, initial encounter
CPT/HCPCS: 96372; 99284; 72100; 81003; 81015; J1885

== ENCOUNTER 2023-12-26 19:55 | Emergency (ER) | payer MEDICAID, SELFPAY ==
[2023-12-26 19:57] VITALS: BP 153/127; PULSE 116; RESP 18; TEMP 36.1; O2SAT 100
[2023-12-26 20:00] VITALS: RESP 18
--- NOTE | 2023-12-26 20:27 | ED.GENADUL_ITS ---
Discharge Plan Disposition Patient Disposition: Home Condition: Stable Discharge Details Clinical Impression: Chronic low back pain Primary Care Provider: Олег Mcleod ED Provider: Lana Stubbs Home Meds and New Rx's Prescriptions: New methocarbamol 750 mg tablet 1,500 mg PO Q6H Qty: 8 0RF Continued atorvastatin 40 mg tablet 40 mg PO DAILY duloxetine 60 mg capsule,delayed release(DR/EC) 60 mg PO BID oxycodone-acetaminophen 7.5-325 mg tab,oral only,IR - ER, biphase PO Q6H PRN amitriptyline 50 mg tablet 100 mg PO QHS ibuprofen 600 mg tablet 600 mg PO QID PRN (Reason: pain) Qty: 30 0RF Discharge Instructions Additional Instructions: I encourage you to call your account support specialist first thing in the morning to discuss pain control. Continue taking your medications as prescribed. You may also follow up with pain clinic at [facility] as needed. You may use the Robaxin for the next 3 days, use longer than 3 days as not recommended. Take 1500 mg every 6 hours as needed for muscle spasms. Avoid driving or use of heavy machinery while you are on this medication, as it may be sleepy. You may use a heating pad/electric blanket to help with muscle relaxation. You may alternate with ice/cool compresses as needed. Muscle rubs such as Aspercreme or Bengay may also be helpful, as may products with capsacin. Gentle massage is also a good idea. Return to emergency care if develop new leg weakness, fevers associated back pain, change in bowel or bladder function, or if you are very worried and need to be rechecked again immediately Referrals: [facility] [Provider Group] HPI General Date/Time Provider Initiated Documentation: 12/26/23 19:56 . HPI Narrative: Prachi is a 43-year-old female with history of chronic lower back/sacral pain with bilateral sciatica x 3 years who presents to the emergency department today for evaluation of poorly controlled pain. She reports that she had her dose of oxycodone recently changed from 7.5 mg to 5 mg, says it is not as effective as the higher dose. She missed her appointment at the spine clinic at [facility] yesterday because she does not have transportation to get down to [place]. She reports pain is consistent with her chronic back pain, no recent changes or inciting incident. This is accompanied by unchanged paresthesias to the lower legs, difficulty walking due to pain, and unchanged paresthesias in the saddle area. No loss of bowel/bladder control, new leg weakness, or associated fever/chills. She reports that lidocaine patches and Toradol/ibuprofen have not been effective for pain control. She does have a history of spinal surgery in June 2022. Related Data Home Medications Medication Instructions Recorded Confirmed ibuprofen 600 mg tablet 600 mg PO QID PRN pain #30 tabs 08/05/18 06/06/23 amitriptyline 50 mg tablet 100 mg PO QHS 12/05/22 12/26/23 atorvastatin 40 mg tablet 40 mg PO DAILY 06/06/23 06/06/23 duloxetine 60 mg capsule,delayed 60 mg PO BID 06/06/23 06/06/23 release oxycodone 7.5 mg-acetaminophen ER tab PO Q6H PRN 06/06/23 06/06/23 325 mg tab extended rel. oral only methocarbamol 750 mg tablet 1,500 mg (2 x 750 mg) PO Q6H #8 12/26/23 tabs Previous Rx's Medication Instructions Recorded ibuprofen 600 mg tablet 600 mg PO QID PRN pain #30 tabs 08/05/18 methocarbamol 750 mg tablet 1,500 mg (2 x 750 mg) PO Q6H #8 12/26/23 tabs Allergies Allergy/AdvReac Type Severity Reaction Status Date / Time No Known Allergies Allergy Unverified 12/26/23 20:03 General Stated Complaint: Nk/Back Pain GOMEZ: 3 Review of Systems Narrative: see HPI Exam Const General: cooperative, healthy appearing and other (appears uncomfortable) Nutritional Appearance: average body habitus Resp Effort & Inspection: normal respiratory effort and able to speak in complete sentences Back/Spine/Pelvis Cervical Spine: normal cervical lordosis Thoracic/Lumbar Spine: paraspinal tenderness, thoracic spinal tenderness (diffuse) and straight leg raise positive (bilateral) Neuro Gait: normal gait Motor: muscle tone normal throughout and strength 5/5 throughout Sensory Exam: no sensory deficits noted DTR's: Rt Patellar: 2+ and Lt Patellar: 2+ Extrem General: normal to inspection and no pedal edema Right lower extremity: normal capillary refill and foot (normal pedal pulses) Left lower extremity: normal capillary refill and foot (normal pedal pulses) Course Vital Signs Vital signs: Vital Signs Temperature 36.1 C L 12/26/23 19:57 Pulse 116 H 12/26/23 19:57 Respiratory Rate 18 12/26/23 19:57 Blood Pressure 153/127 H 12/26/23 19:57 Pulse Oximetry 100 12/26/23 19:57 Temperature 36.1 C L 12/26/23 19:57 Pulse 116 H 12/26/23 19:57 Respiratory Rate 18 12/26/23 20:00 Respiratory Effort Normal, Non-Labored 12/26/23 20:00 Respiratory Depth Normal 12/26/23 20:00 Respiratory Pattern Normal 12/26/23 20:00 Blood Pressure 153/127 H 12/26/23 19:57 Pulse Oximetry 100 12/26/23 19:57 Oxygen Delivery Method Room Air 12/26/23 20:00 Oxygen Flow Rate 0 12/26/23 20:00 Pain Level 10 12/26/23 19:57 Medical Decision Making Prachi is a 43-year-old female with history of chronic lower back/sacral pain with bilateral sciatica x 3 years who presents to the emergency department today for evaluation of poorly controlled pain. She reports that she had her dose of oxycodone recently changed from 7.5 mg to 5 mg, says it is not as effective as the higher dose. She missed her appointment at the spine clinic at [facility] y because she does not have transportation to get down to [place]. She reports pain is consistent with her chronic back pain, no recent changes or inciting incident. This is accompanied by unchanged paresthesias to the lower legs, difficulty walking due to pain, and unchanged paresthesias in the saddle area. No loss of bowel/bladder control, new leg weakness, or associated fever/chills. She reports that lidocaine patches and Toradol/ibuprofen have not been effective for pain control. She does have a history of spinal surgery in June 2022. Pt denies ETOH or drug use. Physical exam remarkable for uncomfortable patient who is tearful during exam. She does have tenderness to palpation of sacrum as well as paraspinal muscles. No point tenderness/step-off/deformity. Patient is able to walk, though appears uncomfortable while doing so. 5 out of 5 muscle strength to lower extremities. Patellar reflexes 2+. Sensation grossly intact, though she does report some tingling. History and presentation consistent with chronic lower back pain with sciatica. No red flags concerning for spinal cord compression or fracture indicating need for emergent diagnostic imaging. As patient has a longstanding history of back pain, I discussed pain control options with her in light of her pre-existing pain specialty prescriptions. She is agreeable to trying Robaxin, says that muscle relaxers such as Flexeril have not helped in the past, but she has not tried this particular one. Reviewed discharge instructions with patient, including gentle massage, heat/ice, and follow-up with spine clinic or pain clinic as needed. Educated on red flags indicating need for return to emergency care. She and her fianc? are agreeable with plan of care. Quality:SDOH Health Related Social Needs: No Data to Display PFSH All Active Problems (Updated 12/26/23 @ 20:21 by Lana Bacon) Chronic low back pain (Chronic) Lumbosacral radiculopathy at L5 (Acute) Lumbar strain (Acute) Lumbar back sprain (Acute) Medical History Anxiety with depression Celiac disease Factor II deficiency GERD (gastroesophageal reflux disease) History of prediabetes Hyperlipidemia Insomnia Iron deficiency Low back pain Migraine No significant past medical history Obesity Sciatica of left side Urinary incontinence in female Surgical History section H/O lumbar discectomy H/O partial thyroidectomy Ligation of fallopian tube Family History Maternal Grandmother Cancer LUNG CANCER Social History Smoking/Tobacco Use Status: Former Tobacco Use Smoking risk assessment performed?: Yes Alcohol Intake: never Drug use: Never Substance use type: does not use Household members: none Number of Children: 4 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
--- NOTE | 2023-12-26 20:28 | NUR.NOTE ---
Pt placed on care management referral list to be seen by Pain Clinic for lower back pain (poorly controlled) FROY Rosales would like pt to be seen in 1-2 weeks
[2023-12-26] MEDS: Methocarbamol 750 MG TAB 1500 MG PO ×2 (20:46)
[2023-12-26 20:47] VITALS: BP 115/71; PULSE 90; RESP 18; O2SAT 98
== END 2023-12-26 20:50 | disposition home or self-care (01) ==
PROVIDERS: Emergency Provider Nurse Practitioner Family; PCP Family Medicine
DX: M54.50 Low back pain, unspecified (principal); D68.2 Hereditary deficiency of other clotting factors; Z87.891 Personal history of nicotine dependence
CPT/HCPCS: 99283

== ENCOUNTER → 2024-01-10 00:53 | Outpatient (CLI) | payer MEDICAID, SELFPAY ==
--- NOTE | 2024-01-10 | DI.MRI_ITS ---
Exam(s) MR LUMBAR SPINE WO EXAM: MR LUMBAR SPINE WO CLINICAL HISTORY: LOW BACK PAIN M54.59. TECHNIQUE: Multiplanar multisequence MRI of the Lumbar spine was performed. COMPARISON: MR MR LUMBAR SPINE WO from 04/16/2022 CR,XR XR LUMBAR SPINE AP, LAT from 02/26/2023 FINDINGS: Please be aware prior plain films have revealed variant transitional with 6 [id number] lumbar ve rtebrae. This is an important finding here if this patient ever goes to surgery, so as to avoid oper ating on the wrong level. For the sake of this MRI interpretation the levels will be name so as to correspond to the levels on the MRI scan of 04/16/2022. Conus medullaris is at normal level. There is no evidence of conus mass nor subjacent clumping of in trathecal nerve roots to suggest arachnoiditis. The distal thecal sac appears unremarkable.There is no evidence of Tarlov intrasacral cysts nor other significant findings within the sacral canal Bones:There are no fractures nor ominous osseous lesions in the lumbar vertebral bodies and visualize d sacrum. With respect to the individual levels... T12-L1: Unremarkable L1-2: Normal disc height and signal. No disc herniation nor central canal stenosis.No foraminal steno sis L2-3: Normal disc height. No disc herniation or canal stenosis. No foraminal stenosis. No facet art hropathy. L3-4: The L3-4 level testing the previously described left-sided annular bulging has slightly increas ed in size, again extending into the floor of the exiting left neural foramen. However, there is aga in no true foraminal stenosis and no central canal stenosis. L4-5: Normal disc height. The previously described tiny focus of signal abnormality in the posterior annulus left side is again noted consistent with tiny annular tear but there is again no evidence of disc herniation, canal stenosis, nor foraminal stenosis at this level. There are mild degenerative changes in the facet joints. L5-S1: At this level there is again noted advanced disc space narrowing and there are now Modic type 1 sub endplate marrow edema changes which are not evident in 202. there appears to be a partial left laminectomy defect on the left side at this level.. The previously described large disc herniation at this level is again evident. Presently this disc protrusion extends posteriorly 1.3 cm, indenting the thecal sac and is 2.2 cm wide. However, it again is noted to not extend appreciably into the ex iting neural foramina on either side. Mild facet joint degenerative changes. Soft tissues: paraspinal soft tissues appear unremarkable. IMPRESSION: 1. Persistent large disc herniation at L5-S1 level. 2. Slightly larger left-sided annular bulge at L3-4 level DATA REPOSITORY:
== END ==
PROVIDERS: PCP Family Medicine; Visit Provider Nurse Practitioner Family
DX: M51.37 Other intervertebral disc degeneration, lumbosacral region (principal)
CPT/HCPCS: 72148

== ENCOUNTER 2024-03-11 08:04 | Outpatient (CLI) | payer MEDICAID, SELFPAY ==
[2024-03-11 08:16] VITALS: BP 130/91; PULSE 62; RESP 20; TEMP 36.7; O2SAT 100
[2024-03-11 08:45] VITALS: PULSE 105; RESP 18; O2SAT 100
[2024-03-11 08:53] VITALS: BP 139/100; PULSE 92; PULSE 98; RESP 17; O2SAT 100
--- NOTE | 2024-03-11 08:57 | DI.RAD_ITS ---
Exam(s) XR PAIN CLINIC LUMBAR SP 2V EXAM: XR PAIN CLINIC LUMBAR SP 2V CLINICAL HISTORY: Dx: Lumbar Radiculopathy TECHNIQUE: 2D and realtime digital imaging was performed. Radiologist not present. CONTRAST MATERIAL: None. COMPARISON: No exams were available for comparison FINDINGS: Fluoroscopy was provided for pain management therapy. Please refer to procedure report or details. Radiation Exposure Index: Ka,r=11.57 mGy IMPRESSION: As above. RADIATION DOSE DELIVERED:
[2024-03-11] MEDS: Omnipaque 240 MG/ML 50 ML BTL IJ (09:01)
[2024-03-11] MEDS: Nerve Block Tray 1 EACH MC (09:01)
[2024-03-11] MEDS: Dexamethasone Sod. Phos./Pres-Free 10 MG/ML VIAL IJ (09:01)
--- NOTE | 2024-03-11 10:52 | PDOC.PAIN_ITS ---
Date of service: 03/11/24 Time of Service: 09:52 Pain Managment Procedure Note Procedure Note Procedure Note: PROCEDURE NOTE LEFT S1 TRANSFORAMINAL EPIDURAL STEROID INJECTION Chief Complaint: LEFT leg pain. Date of Service: March 11, 2024 Patient: Prachi Vazquez Provider: Julio Cueto DO, MPH Prachi Vazquez has been referred to the [facility] for a transforaminal epidural steroid injection. Pre-operative diagnosis: Lumbosacral Radiculopathy Post-operative diagnosis: Same Pre-Procedure Pain: VAS= 10/10 Comments: I previously evaluated the patient in our clinic and their symptoms remain the same as they were at that time. I had previously recommended an interlaminar LESI when I evaluated her in the clinic on 02/27/24. Considering she has had lumbar surgery at L5-S1 and has specific pathology emanating from this disc to the left side, I decided to change the approach to a left S1 transforaminal GOMEZ. She understood and agreed. Prachi was interviewed and the medical record reviewed. There were no medical, pharmacologic, radiographic or other structural contraindications to attempting a fluoroscopically-guided transforaminal lumbar epidural steroid injection. The risks, benefits, and potential side effects were reviewed with the patient. Risks include, but are not limited to, [id number] headache, infection, bleeding, nerve injury, spinal cord damage, allergic reaction, possible increase in symptoms over the ensuing 24 to 48 hours, paralysis, and . The patient appeared to understand, questions were answered to the patient?s satisfaction and the patient agreed to proceed. Once I obtained informed verbal consent, the printed consent form was signed by the patient and myself. A standard time-out procedure was performed. Prachi was placed in the prone position on the fluoroscopy table and automated blood pressure cuff, three lead EKG, and pulse oximeter were applied. The skin entry point for entering/approaching the S1 space for the transforaminal epidural steroid injection was marked. Following thorough chlorhexadine preparation of the skin and draping, 2 ml of 1% lidocaine was infiltrated into the skin over the entry point and subcutaneous tissues. Under fluoroscopic guidance, in ipsilateral oblique view, a co-axial approach using a 5 22G spinal needle was advanced to the base left S1 foramina. The needle was advanced to the superio-posterior aspect of the neural foramen under lateral view. Oblique and AP views were rechecked. Under AP and lateral views, 1 ml of Omnipaque-240 was injected while visualized with fluoroscopy. There was no evidence of intravascular or intrathecal uptake, the epidural space was delineated. Next 1.5 ml of preservative-free Dexamethasone (10 mg/ml) was injected after negative aspiration. This was followed by 1 ml of preservative-free 1% lidocaine. (49 mls of Omnipaque-240 was wasted) There was no unusual discomfort expressed by Prachi. The needle was withdrawn without difficulty. Prachi was observed and was without hemodynamic, neurologic, or allergic reactions.? Fluoroscopic images were digitally archived. Prachi's vital signs were stable throughout the procedure and were as recorded in the docflowsheet by the nursing staff.? If given, dosages of intravenous drugs for anxiolysis and analgesia were documented in MAR. Follow up plans and appointments were discussed with Prachi. Post procedure instruction was given as documented in nursing records and having met discharge criteria Prachi was discharged from the [facility]. COMMENTS: Post-procedure pain: VAS= 3/10. Prachi to contact [facility] as needed. If at least 50% improvement in pain and/or function for at least 3 months is achieved, this procedure can be repeated. I personally performed this entire procedure. JULIO CUETO DO, MPH ABPMR-subspecialty board certification in Pain Medicine [facility]
== END 2024-03-11 08:05 | disposition home or self-care (01) ==
LOC: PC 08:04
PROVIDERS: PCP Family Medicine; Visit Provider Preventive Medicine Occupational Medicine
DX: M54.17 Radiculopathy, lumbosacral region (principal)
CPT/HCPCS: 64483; 72100; J1100; Q9967

== ENCOUNTER → 2024-04-10 00:07 | Outpatient (CLI) | payer MEDICAID, SELFPAY ==
--- NOTE | 2024-04-10 07:45 | DI.MRI_ITS ---
Exam(s) MR LUMBAR SPINE WO/W EXAM: MR LUMBAR SPINE WO/W CLINICAL HISTORY: Left S1 radic s/p discectomy, LUMBAR RADICULOPATHY, M54.16. TECHNIQUE: Multiplanar multisequence MRI of the Lumbar Spine was performed. Additional pre and post gadolinium fat suppressed T1 sagittal and axial sequences were performed. CONTRAST MATERIAL: IV Contrast: 18 mL of Dotarem contrast administered. COMPARISON: CT CT ABDOMEN PELVIS W from 02/12/2019 MR MR LUMBAR SPINE WO from 04/16/2022 CR,XR XR LUMBAR SPINE AP, LAT from 02/26/2023 MR MR LUMBAR SPINE WO from 01/10/2024 FINDINGS: Bones: The last intervertebral disc space is designated the L5/S1 level for the numbering purpose of this examination. The vertebral body heights are well maintained. Alignment is satisfactory. The signal characteristics are unremarkable with the exception of degenerative signal changes in the L5-S1 endplates. Cord: The conus tip ends at the T12 level. It is of normal size and signal intensity. T12-L1: No disc herniations or bulges are present. No central spinal canal or neural foraminal stenos is. L1-2: No disc herniations or bulges are present. No central spinal canal or neural foraminal stenosis . L2-3: No disc herniations or bulges are present. No central spinal canal or neural foraminal stenosis . L3-4: Mild left-sided disc bulging. No central spinal canal or neural foraminal stenosis. L4-5: No disc herniations or bulges are present. Mild facet degenerative changes. No central spinal canal or neural foraminal stenosis. L5-S1: Left laminectomy defect. Previously noted central disc herniation remains present and now jennifer sures 8 millimeters AP by 2.1 cm transverse by 15 millimeter cephalo caudad. There has been a decrea se in the AP dimension of the disc herniation with less mass effect on the thecal sac. It does appea r to contact the left S1 nerve root, unchanged from prior. There is some enhancement in the tissues posterior to the L5-S1 level consistent with postsurgical changes. The visualized SI joints and sacrum are well maintained. Soft tissues: The paraspinal soft tissues are unremarkable. There is no evidence of suspicious enhancement. IMPRESSION: Mild interval decrease in size of L5-S1 disc herniation. No no new disc herniations. DATA REPOSITORY:
[2024-04-10] MEDS: Normal Saline Flush 10 ML SYR IVP (12:05)
[2024-04-10] MEDS: Gadoterate meglumine 20 ML SYRINGE 18 ML IVP (12:06)
== END ==
PROVIDERS: PCP Family Medicine; Visit Provider Preventive Medicine Occupational Medicine
DX: M54.16 Radiculopathy, lumbar region (principal); M51.27 Other intervertebral disc displacement, lumbosacral region
CPT/HCPCS: 72158